=== PATIENT | male | born 1950 | race Caucasian/White ===

== ENCOUNTER 2017-05-17 16:38 | Inpatient (IN) ==
[2017-05-17] MEDS ORDERED: ASPIRIN 325 MG TABLET PO STA (17:03)
[2017-05-17] MEDS ORDERED: NITROGLYCERIN SL 0.4 MG TABLET SL STA (17:50)
[2017-05-17] MEDS ORDERED: MORPHINE 2 MG/1 ML SYRINGE IV STA (18:26)
[2017-05-17] MEDS ORDERED: ONDANSETRON 4 MG/2 ML VIAL IV STA (18:26)
[2017-05-17] MEDS ORDERED: ONDANSETRON 4 MG/2 ML VIAL ONE (18:42)
[2017-05-17] MEDS ORDERED: NITROGLYCERIN DRIP 50 MG/250 ML BOTTLE IV ONE (18:42)
[2017-05-17] MEDS ORDERED: MORPHINE 2 MG/1 ML SYRINGE ONE ×2 (18:42)
[2017-05-17] MEDS ORDERED: MAGNESIUM SULF RIDER 4 GM in PREMIX 1 EACH IV PRN (18:49)
[2017-05-17] MEDS ORDERED: MAGNESIUM SULF RIDER 2 GM in PREMIX 1 EACH IV PRN (18:49)
[2017-05-17] MEDS: NITROGLYCERIN DRIP 50 MG/250 ML BOTTLE IV SCH (18:59)
[2017-05-17] MEDS ORDERED: NITROGLYCERIN SL 0.4 MG TABLET SL PRN (19:52)
[2017-05-17] MEDS ORDERED: ENOXAPARIN 80 MG/0.8 ML SYRINGE SUBCUT ONE (20:01)
[2017-05-17] MEDS ORDERED: POTASSIUM CHLORIDE RIDER 10 MEQ in PREMIX 1 EACH IV PRN (20:02)
[2017-05-17] MEDS ORDERED: MORPHINE 2 MG/1 ML SYRINGE IV PRN (20:47)
[2017-05-17] MEDS: TICAGRELOR 90 MG TABLET PO SCH (21:31)
[2017-05-17] MEDS: CARVEDILOL 12.5 MG TABLET PO SCH (21:31)
[2017-05-18] MEDS: SODIUM CHLORIDE 0.45% 1,000 ML IV SCH ×2 (03:21→15:38)
[2017-05-18 04:01] LABS: Basophils # 0.1 10*3/uL (0.0-0.2); Basophils % 0.6 % (0.0-0.8); Eosinophils # 0.2 10*3/uL (0.0-0.87); Eosinophils % 2.3 % (0.00-10.9); Hematocrit 41.4 VOL% (42.0-52.0); Hemoglobin 13.7 GM/DL (14.0-18.0); Immature Granulocytes % 0.6 %; Immature Granulocytes Absolute 0.05 #; Lymphocytes # 2.2 10*3/uL (1.4-4.0); Lymphocytes % 28.3 % (21.2-54.2); Mean Corpuscular HGB Conc 33.1 GM/DL (32-36); Mean Corpuscular Hemoglobin 30 PG (27-34); Mean Corpuscular Volume 90.2 FL (87-102); Mean Platelet Volume 8.7 FL (9.6-12.0); Monocytes # 0.7 10*3/uL (0.11-0.8); Monocytes % 9.5 % (1.7-12.7); Neutrophils # 4.5 10*3/uL (1.4-7.4); Neutrophils % 58.7 % (38.7-73.9); Platelet Count 185 T/CUMM (130-400); Red Blood Count 4.59 MC/CUMM (3.8-5.5); Red Cell Distribution Width 12.5 % (9.3-17.3); White Blood Count 7.7 T/CUMM (4-12)
[2017-05-18 04:14] LABS: INR 1.1; PT Patient Result 11.9 SECS
[2017-05-18 04:40] LABS: Calcium 8.5 MG/DL (8.5-10.1); Osmolality,Calculated 283.1 MOS/KG (273-304); Potassium 4.1 MMOL/L (3.5-5.1)
[2017-05-18 04:46] LABS: Magnesium 2.5 MG/DL (1.8-2.4); Risk Ratio 5.89; VLDL CHOLESTEROL 40.8 MG/DL
[2017-05-18] MEDS ORDERED: diphenhydrAMINE CAP 25 MG CAPSULE PO ONE (06:00)
[2017-05-18] MEDS ORDERED: DIAZEPAM 5 MG TABLET PO ONE (06:00)
[2017-05-18] MEDS ORDERED: ASPIRIN 325 MG TABLET ONE (06:54)
[2017-05-18] MEDS: TICAGRELOR 90 MG TABLET PO SCH ×3 (06:58→21:26)
[2017-05-18] MEDS: CARVEDILOL 12.5 MG TABLET PO SCH ×3 (06:59→21:26)
[2017-05-18] MEDS: ASPIRIN CHEW 81 MG TABLET PO SCH ×2 (07:01→10:05)
[2017-05-18] MEDS ORDERED: HYDROmorphone 2 MG/1 ML VIAL ONE ×2 (09:20→10:19)
[2017-05-18] MEDS ORDERED: MIDAZOLAM 2 MG/2 ML VIAL ONE ×2 (09:20→10:20)
[2017-05-18] MEDS ORDERED: BIVALIRUDIN 250 MG VIAL IV ONE (10:21)
[2017-05-18] MEDS ORDERED: BIVALIRUDIN 250 MG in SODIUM CHLORIDE 0.9% 50 ML IV SCH (10:28)
[2017-05-18] MEDS ORDERED: TICAGRELOR 90 MG TABLET ONE (11:00)
[2017-05-18] MEDS ORDERED: HEPARIN/NACL 0.9% 2 UNITS/ML 1,000 ML IV ONE (11:01)
[2017-05-18] MEDS ORDERED: LIDOCAINE 1% 20 ML VIAL ONE (11:01)
[2017-05-18] MEDS ORDERED: ONDANSETRON 4 MG/2 ML VIAL IV PRN (11:04)
[2017-05-18] MEDS ORDERED: ZALEPLON 5 MG CAPSULE PO PRN (11:04)
[2017-05-18] MEDS ORDERED: ACETAMINOPHEN 325 MG TABLET PO PRN (12:03)
[2017-05-18] MEDS ORDERED: BISACODYL 5 MG TABLET PO PRN (12:05)
[2017-05-18] MEDS: VALSARTAN/HCTZ 80-12.5 MG TABLET PO SCH (12:48)
[2017-05-18] MEDS: FUROSEMIDE 20 MG TABLET PO SCH ×2 (12:49→15:30)
[2017-05-18] MEDS: NITROGLYCERIN DRIP 50 MG/250 ML BOTTLE IV SCH (21:25)
[2017-05-18] MEDS: diphenhydrAMINE CAP 25 MG CAPSULE PO PRN (21:26)
[2017-05-19] MEDS: ASPIRIN CHEW 81 MG TABLET PO SCH (09:00)
[2017-05-19] MEDS: CARVEDILOL 12.5 MG TABLET PO SCH ×2 (09:00→21:40)
[2017-05-19] MEDS: FUROSEMIDE 20 MG TABLET PO SCH (09:00)
[2017-05-19] MEDS: VALSARTAN/HCTZ 80-12.5 MG TABLET PO SCH (09:00)
[2017-05-19] MEDS: TICAGRELOR 90 MG TABLET PO SCH ×2 (09:00→21:40)
[2017-05-19] MEDS ORDERED: ROSUVASTATIN 10 MG TABLET PO SCH (10:00)
[2017-05-19] MEDS: SODIUM CHLORIDE 0.9% 1,000 ML IV SCH ×2 (10:01→20:20)
[2017-05-19 11:11] LABS: Calcium 8.5 MG/DL (8.5-10.1); Osmolality,Calculated 283.1 MOS/KG (273-304); Potassium 3.8 MMOL/L (3.5-5.1)
[2017-05-19 11:25] LABS: Basophils % 0.4 % (0.0-0.8); Eosinophils # 0.2 10*3/uL (0.0-0.87); Eosinophils % 2.2 % (0.00-10.9); Hematocrit 42.2 VOL% (42.0-52.0); Hemoglobin 14.1 GM/DL (14.0-18.0); Immature Granulocytes % 0.5 %; Immature Granulocytes Absolute 0.04 #; Lymphocytes # 1.4 10*3/uL (1.4-4.0); Lymphocytes % 18.2 % (21.2-54.2); Mean Corpuscular HGB Conc 33.4 GM/DL (32-36); Mean Corpuscular Hemoglobin 30 PG (27-34); Mean Corpuscular Volume 90.6 FL (87-102); Monocytes # 0.8 10*3/uL (0.11-0.8); Monocytes % 9.9 % (1.7-12.7); Neutrophils # 5.4 10*3/uL (1.4-7.4); Neutrophils % 68.8 % (38.7-73.9); Platelet Count 180 T/CUMM (130-400); Red Blood Count 4.66 MC/CUMM (3.8-5.5); Red Cell Distribution Width 12.5 % (9.3-17.3); White Blood Count 7.9 T/CUMM (4-12)
[2017-05-19] MEDS ORDERED: LOPERAMIDE 2 MG CAPSULE PO PRN ×2 (11:47→14:24)
[2017-05-19] MEDS: SODIUM CHLORIDE 0.45% 1,000 ML IV SCH ×2 (11:53→19:35)
[2017-05-19] MEDS ORDERED: MAGNESIUM SULF RIDER 2 GM in PREMIX 1 EACH IV PRN (14:04)
[2017-05-19] MEDS ORDERED: PROMETHAZINE INJ 25 MG in SODIUM CHLORIDE 0.9% 50 ML IV PRN (20:23)
[2017-05-19] MEDS: NITROGLYCERIN DRIP 50 MG/250 ML BOTTLE IV SCH (21:38)
[2017-05-19] MEDS: diphenhydrAMINE CAP 25 MG CAPSULE PO PRN (21:40)
[2017-05-19] MEDS ORDERED: LORazepam 2 MG/1 ML VIAL IV PRN (23:47)
[2017-05-20 03:51] LABS: Basophils % 0.4 % (0.0-0.8); Eosinophils # 0.2 10*3/uL (0.0-0.87); Eosinophils % 1.4 % (0.00-10.9); Hematocrit 41.3 VOL% (42.0-52.0); Hemoglobin 14.3 GM/DL (14.0-18.0); Immature Granulocytes % 0.6 %; Immature Granulocytes Absolute 0.07 #; Lymphocytes # 1.8 10*3/uL (1.4-4.0); Lymphocytes % 16.1 % (21.2-54.2); Mean Corpuscular HGB Conc 34.6 GM/DL (32-36); Mean Corpuscular Hemoglobin 31 PG (27-34); Mean Corpuscular Volume 88.1 FL (87-102); Mean Platelet Volume 8.8 FL (9.6-12.0); Monocytes % 9.3 % (1.7-12.7); Neutrophils # 7.9 10*3/uL (1.4-7.4); Neutrophils % 72.2 % (38.7-73.9); Platelet Count 177 T/CUMM (130-400); Red Blood Count 4.69 MC/CUMM (3.8-5.5); Red Cell Distribution Width 12.3 % (9.3-17.3)
[2017-05-20 04:19] LABS: Calcium 8.4 MG/DL (8.5-10.1); Osmolality,Calculated 280.3 MOS/KG (273-304); Potassium 3.1 MMOL/L (3.5-5.1)
[2017-05-20] MEDS: POTASSIUM CHLORIDE RIDER 10 MEQ in PREMIX 1 EACH IV PRN ×2 (05:23→06:29)
[2017-05-20] MEDS ORDERED: diphenhydrAMINE CAP 25 MG CAPSULE PO ONE (06:00)
[2017-05-20] MEDS ORDERED: DIAZEPAM 5 MG TABLET PO ONE (06:00)
[2017-05-20] MEDS: SODIUM CHLORIDE 0.9% 1,000 ML IV SCH ×2 (06:29→20:03)
[2017-05-20] MEDS ORDERED: HEPARIN/NACL 0.9% 2 UNITS/ML 1,000 ML IV ONE (07:17)
[2017-05-20] MEDS ORDERED: HYDROmorphone 2 MG/1 ML VIAL ONE (07:17)
[2017-05-20] MEDS ORDERED: LIDOCAINE 1% 20 ML VIAL ONE (07:17)
[2017-05-20] MEDS ORDERED: MIDAZOLAM 2 MG/2 ML VIAL ONE (07:18)
[2017-05-20] MEDS ORDERED: BIVALIRUDIN 250 MG VIAL IV ONE (07:37)
[2017-05-20] MEDS: BIVALIRUDIN 250 MG in SODIUM CHLORIDE 0.9% 50 ML IV SCH ×2 (08:55→13:37)
[2017-05-20] MEDS ORDERED: SODIUM CHLORIDE 0.9% 1,000 ML IV SCH (11:30)
[2017-05-20] MEDS: CARVEDILOL 12.5 MG TABLET PO SCH ×2 (11:32→21:31)
[2017-05-20] MEDS: VALSARTAN/HCTZ 80-12.5 MG TABLET PO SCH (11:32)
[2017-05-20] MEDS: TICAGRELOR 90 MG TABLET PO SCH ×2 (11:32→21:31)
[2017-05-20] MEDS: FUROSEMIDE 20 MG TABLET PO SCH (11:32)
[2017-05-20] MEDS: ASPIRIN CHEW 81 MG TABLET PO SCH (11:32)
[2017-05-20] MEDS: NITROGLYCERIN DRIP 50 MG/250 ML BOTTLE IV SCH (20:03)
[2017-05-20] MEDS: diphenhydrAMINE CAP 25 MG CAPSULE PO PRN (21:31)
[2017-05-21] MEDS: SODIUM CHLORIDE 0.9% 1,000 ML IV SCH (02:19)
[2017-05-21 05:44] LABS: Basophils % 0.5 % (0.0-0.8); Eosinophils # 0.3 10*3/uL (0.0-0.87); Eosinophils % 3.1 % (0.00-10.9); Hematocrit 39.9 VOL% (42.0-52.0); Hemoglobin 13.6 GM/DL (14.0-18.0); Immature Granulocytes % 0.6 %; Immature Granulocytes Absolute 0.05 #; Lymphocytes # 1.8 10*3/uL (1.4-4.0); Lymphocytes % 20.4 % (21.2-54.2); Mean Corpuscular HGB Conc 34.1 GM/DL (32-36); Mean Corpuscular Hemoglobin 30 PG (27-34); Mean Corpuscular Volume 88.5 FL (87-102); Mean Platelet Volume 8.9 FL (9.6-12.0); Monocytes # 0.9 10*3/uL (0.11-0.8); Monocytes % 10.6 % (1.7-12.7); Neutrophils # 5.7 10*3/uL (1.4-7.4); Neutrophils % 64.8 % (38.7-73.9); Platelet Count 162 T/CUMM (130-400); Red Blood Count 4.51 MC/CUMM (3.8-5.5); Red Cell Distribution Width 12.2 % (9.3-17.3); White Blood Count 8.7 T/CUMM (4-12)
[2017-05-21 06:25] LABS: Blood Urea Nitrogen 18 MG/DL (7-18); Calcium 8.4 MG/DL (8.5-10.1); Glucose 87 MG/DL (74-106); Osmolality,Calculated 279.4 MOS/KG (273-304); Potassium 3.7 MMOL/L (3.5-5.1); Sodium 140 MMOL/L (136-145)
[2017-05-21] MEDS: VALSARTAN/HCTZ 80-12.5 MG TABLET PO SCH (09:39)
[2017-05-21] MEDS: CARVEDILOL 12.5 MG TABLET PO SCH (09:39)
[2017-05-21] MEDS: ASPIRIN CHEW 81 MG TABLET PO SCH (09:39)
[2017-05-21] MEDS: TICAGRELOR 90 MG TABLET PO SCH (09:39)
[2017-05-21] MEDS: FUROSEMIDE 20 MG TABLET PO SCH (09:39)
[2017-05-21 10:37] VITALS: BP 107/71
== END 2017-05-21 10:45 | disposition home or self-care (01) | DRG 247 ==
LOC: EDUNIT# → EDBD → N.ED 16:38 → N.EDINP 18:49 → N.CC 19:13
PROVIDERS: ADMIT Internal Medicine Cardiovascular Disease; ATTEND Internal Medicine Cardiovascular Disease

== ENCOUNTER 2017-08-16 10:35 | Inpatient (IN) ==
[2017-08-16] MEDS ORDERED: MORPHINE 2 MG/1 ML SYRINGE IV PRN (15:22)
[2017-08-16] MEDS ORDERED: ACETAMINOPHEN 325 MG TABLET PO PRN (15:22)
[2017-08-16 16:20] LABS: Basophils % 0.1 % (0.0-0.8); Hematocrit 40.2 VOL% (42.0-52.0); Hemoglobin 13.1 GM/DL (14.0-18.0); Immature Granulocytes % 0.9 %; Immature Granulocytes Absolute 0.16 #; Lymphocytes # 0.5 10*3/uL (1.4-4.0); Lymphocytes % 2.6 % (21.2-54.2); Mean Corpuscular HGB Conc 32.6 GM/DL (32-36); Mean Corpuscular Hemoglobin 30 PG (27-34); Mean Corpuscular Volume 91.6 FL (87-102); Monocytes # 0.2 10*3/uL (0.11-0.8); Neutrophils # 16.7 10*3/uL (1.4-7.4); Neutrophils % 95.4 % (38.7-73.9); Platelet Count 176 T/CUMM (130-400); Red Blood Count 4.39 MC/CUMM (3.8-5.5); Red Cell Distribution Width 12.8 % (9.3-17.3); White Blood Count 17.5 T/CUMM (4-12)
[2017-08-16] MEDS ORDERED: GLUCAGON 1 MG VIAL IM PRN (16:45)
[2017-08-16] MEDS ORDERED: DEXTROSE 50% 25 GM/50 ML VIAL IV PRN (16:45)
[2017-08-16 16:46] LABS: Band Neutrophils 2 % (0-10); Lymphocytes 3 % (20-55); Platelet Estimate Normal; Segmented Neutrophils 93 % (50-85); Total Cells Counted 100
[2017-08-16 16:58] LABS: CKMB % 4.7 %
[2017-08-16 17:02] LABS: Albumin 4.3 G/DL (3.4-5.0); Bilirubin,Total 0.6 MG/DL (0.2-1.0); Calcium 8.7 MG/DL (8.5-10.1); Magnesium 2.6 MG/DL (1.8-2.4); Potassium 3.7 MMOL/L (3.5-5.1); Thyroid Stimulating Hormone 0.323 uIU/ml (0.358-3.74); Total Protein 7.2 G/DL (6.4-8.3)
[2017-08-16 17:08] LABS: Troponin I Only 3.31 NG/ML (0.00-0.045)
[2017-08-16] MEDS: PANTOPRAZOLE 40 MG TABLET PO SCH (17:30)
[2017-08-16] MEDS: AZITHROMYCIN INJ 500 MG in SODIUM CHLORIDE 0.9% 250 ML IV SCH (18:50)
[2017-08-16 19:13] LABS: CKMB % 5.8 %
[2017-08-16 19:15] LABS: Troponin I Only 4.27 NG/ML (0.00-0.045)
[2017-08-16] MEDS ORDERED: NITROGLYCERIN SL 0.4 MG TABLET SL PRN (20:25)
[2017-08-16] MEDS: cefTRIAXone 2,000 MG in SYRINGE 1 EACH IV SCH (21:17)
[2017-08-16] MEDS: ONDANSETRON 4 MG/2 ML VIAL IV PRN (21:18)
[2017-08-16] MEDS: INSULIN LISPRO 100 UNIT/ML SUBCUT SCH ×2 (21:18→21:30)
[2017-08-16] MEDS: guaiFENesin/DM ER 600-30 MG TABLET PO SCH (21:18)
[2017-08-16] MEDS: ENOXAPARIN 40 MG/0.4 ML SYRINGE SUBCUT SCH (21:18)
[2017-08-16] MEDS: CARVEDILOL 25 MG TABLET PO SCH (21:19)
[2017-08-16] MEDS: TICAGRELOR 90 MG TABLET PO SCH (21:19)
[2017-08-16] MEDS: ALBUTEROL/IPRATROPIUM 3 ML NEB RESP TX SCH (21:29)
[2017-08-16 22:08] LABS: CKMB % 5.5 %
[2017-08-16 22:10] LABS: Troponin I Only 4.93 NG/ML (0.00-0.045)
[2017-08-17 00:36] LABS: CKMB % 4.4 %
[2017-08-17 00:41] LABS: Troponin I Only 4.93 NG/ML (0.00-0.045)
[2017-08-17] MEDS: ALBUTEROL/IPRATROPIUM 3 ML NEB RESP TX SCH ×4 (01:24→20:00)
[2017-08-17 05:06] LABS: Basophils % 0.1 % (0.0-0.8); Hematocrit 36.4 VOL% (42.0-52.0); Hemoglobin 11.8 GM/DL (14.0-18.0); Immature Granulocytes % 0.8 %; Immature Granulocytes Absolute 0.12 #; Lymphocytes # 0.8 10*3/uL (1.4-4.0); Lymphocytes % 5.4 % (21.2-54.2); Mean Corpuscular HGB Conc 32.4 GM/DL (32-36); Mean Corpuscular Hemoglobin 30 PG (27-34); Mean Corpuscular Volume 91.7 FL (87-102); Mean Platelet Volume 9.2 FL (9.6-12.0); Monocytes % 6.5 % (1.7-12.7); Neutrophils # 13.3 10*3/uL (1.4-7.4); Neutrophils % 87.2 % (38.7-73.9); Platelet Count 175 T/CUMM (130-400); Red Blood Count 3.97 MC/CUMM (3.8-5.5); Red Cell Distribution Width 13.2 % (9.3-17.3); White Blood Count 15.3 T/CUMM (4-12)
[2017-08-17 05:37] LABS: Calcium 8.4 MG/DL (8.5-10.1); Potassium 3.9 MMOL/L (3.5-5.1)
[2017-08-17 05:44] LABS: CKMB % 4.6 %
[2017-08-17 06:02] LABS: Troponin I Only 5.23 NG/ML (0.00-0.045)
[2017-08-17] MEDS: INSULIN LISPRO 100 UNIT/ML SUBCUT SCH ×4 (08:00→22:31)
[2017-08-17] MEDS: TICAGRELOR 90 MG TABLET PO SCH ×2 (14:36→22:30)
[2017-08-17] MEDS: PANTOPRAZOLE 40 MG TABLET PO SCH (14:36)
[2017-08-17] MEDS: guaiFENesin/DM ER 600-30 MG TABLET PO SCH ×2 (14:36→22:31)
[2017-08-17] MEDS: CARVEDILOL 25 MG TABLET PO SCH ×2 (14:37→22:30)
[2017-08-17] MEDS: ASPIRIN CHEW 81 MG TABLET PO SCH (14:37)
[2017-08-17] MEDS: VALSARTAN/HCTZ 80-12.5 MG TABLET PO SCH (14:37)
[2017-08-17] MEDS: ISOSORBIDE MONONITRATE 60 MG TABLET PO SCH (14:37)
[2017-08-17] MEDS: FUROSEMIDE 20 MG TABLET PO SCH (14:37)
[2017-08-17] MEDS: cefTRIAXone 2,000 MG in SYRINGE 1 EACH IV SCH (18:03)
[2017-08-17] MEDS: AZITHROMYCIN INJ 500 MG in SODIUM CHLORIDE 0.9% 250 ML IV SCH (18:16)
[2017-08-17] MEDS: ONDANSETRON 4 MG/2 ML VIAL IV PRN (18:29)
[2017-08-17] MEDS ORDERED: ROSUVASTATIN 10 MG TABLET PO SCH (21:00)
[2017-08-17] MEDS: traZODone 50 MG TABLET PO PRN (22:30)
[2017-08-17] MEDS: ENOXAPARIN 40 MG/0.4 ML SYRINGE SUBCUT SCH (22:31)
[2017-08-18] MEDS: ALBUTEROL/IPRATROPIUM 3 ML NEB RESP TX SCH ×4 (01:21→20:15)
[2017-08-18 05:24] LABS: Basophils % 0.3 % (0.0-0.8); Eosinophils # 0.1 10*3/uL (0.0-0.87); Eosinophils % 0.7 % (0.00-10.9); Hematocrit 36.2 VOL% (42.0-52.0); Hemoglobin 11.7 GM/DL (14.0-18.0); Immature Granulocytes % 0.4 %; Immature Granulocytes Absolute 0.04 #; Lymphocytes # 2.3 10*3/uL (1.4-4.0); Lymphocytes % 24.8 % (21.2-54.2); Mean Corpuscular HGB Conc 32.3 GM/DL (32-36); Mean Corpuscular Hemoglobin 30 PG (27-34); Mean Corpuscular Volume 91.4 FL (87-102); Mean Platelet Volume 9.4 FL (9.6-12.0); Monocytes # 0.8 10*3/uL (0.11-0.8); Monocytes % 9.1 % (1.7-12.7); Neutrophils # 5.9 10*3/uL (1.4-7.4); Neutrophils % 64.7 % (38.7-73.9); Platelet Count 173 T/CUMM (130-400); Red Blood Count 3.96 MC/CUMM (3.8-5.5); Red Cell Distribution Width 13.2 % (9.3-17.3); White Blood Count 9.1 T/CUMM (4-12)
[2017-08-18 05:56] LABS: Calcium 8.3 MG/DL (8.5-10.1); Osmolality,Calculated 291.8 MOS/KG (273-304); Potassium 4.2 MMOL/L (3.5-5.1)
[2017-08-18 06:00] LABS: Risk Ratio 4.21; VLDL CHOLESTEROL 26.2 MG/DL
[2017-08-18] MEDS: INSULIN LISPRO 100 UNIT/ML SUBCUT SCH ×4 (07:55→21:48)
[2017-08-18] MEDS: VALSARTAN/HCTZ 80-12.5 MG TABLET PO SCH (09:42)
[2017-08-18] MEDS: guaiFENesin/DM ER 600-30 MG TABLET PO SCH ×2 (09:42→21:18)
[2017-08-18] MEDS: ISOSORBIDE MONONITRATE 60 MG TABLET PO SCH (09:42)
[2017-08-18] MEDS: TICAGRELOR 90 MG TABLET PO SCH ×2 (09:43→21:18)
[2017-08-18] MEDS: ASPIRIN CHEW 81 MG TABLET PO SCH (09:43)
[2017-08-18] MEDS: CARVEDILOL 25 MG TABLET PO SCH ×2 (09:43→21:18)
[2017-08-18] MEDS: FUROSEMIDE 20 MG TABLET PO SCH (09:43)
[2017-08-18] MEDS: PANTOPRAZOLE 40 MG TABLET PO SCH (09:43)
[2017-08-18] MEDS: cefTRIAXone 2,000 MG in SYRINGE 1 EACH IV SCH (18:14)
[2017-08-18] MEDS: AZITHROMYCIN INJ 500 MG in SODIUM CHLORIDE 0.9% 250 ML IV SCH (18:15)
[2017-08-18] MEDS: ONDANSETRON 4 MG/2 ML VIAL IV PRN (18:43)
[2017-08-18] MEDS: ENOXAPARIN 40 MG/0.4 ML SYRINGE SUBCUT SCH (21:18)
[2017-08-18] MEDS: traZODone 50 MG TABLET PO PRN (21:21)
[2017-08-19] MEDS: ALBUTEROL/IPRATROPIUM 3 ML NEB RESP TX SCH ×2 (00:23→07:06)
[2017-08-19 05:52] LABS: Basophils % 0.5 % (0.0-0.8); Eosinophils # 0.2 10*3/uL (0.0-0.87); Immature Granulocytes % 0.7 %; Immature Granulocytes Absolute 0.05 #; Lymphocytes # 2.1 10*3/uL (1.4-4.0); Lymphocytes % 27.2 % (21.2-54.2); Mean Corpuscular HGB Conc 33.3 GM/DL (32-36); Mean Corpuscular Hemoglobin 30 PG (27-34); Mean Corpuscular Volume 88.4 FL (87-102); Mean Platelet Volume 9.2 FL (9.6-12.0); Monocytes # 0.8 10*3/uL (0.11-0.8); Monocytes % 9.8 % (1.7-12.7); Neutrophils # 4.5 10*3/uL (1.4-7.4); Neutrophils % 58.8 % (38.7-73.9); Platelet Count 190 T/CUMM (130-400); Red Blood Count 4.41 MC/CUMM (3.8-5.5); White Blood Count 7.7 T/CUMM (4-12)
[2017-08-19 06:54] LABS: Calcium 8.7 MG/DL (8.5-10.1); Potassium 3.9 MMOL/L (3.5-5.1)
[2017-08-19 07:51] VITALS: BP 115/72
[2017-08-19] MEDS: INSULIN LISPRO 100 UNIT/ML SUBCUT SCH (09:15)
[2017-08-19] MEDS: ISOSORBIDE MONONITRATE 60 MG TABLET PO SCH (09:17)
[2017-08-19] MEDS: guaiFENesin/DM ER 600-30 MG TABLET PO SCH (09:17)
[2017-08-19] MEDS: VALSARTAN/HCTZ 80-12.5 MG TABLET PO SCH (09:17)
[2017-08-19] MEDS: CARVEDILOL 25 MG TABLET PO SCH (09:17)
[2017-08-19] MEDS: ASPIRIN CHEW 81 MG TABLET PO SCH (09:17)
[2017-08-19] MEDS: FUROSEMIDE 20 MG TABLET PO SCH (09:17)
[2017-08-19] MEDS: TICAGRELOR 90 MG TABLET PO SCH (09:17)
[2017-08-19] MEDS: PANTOPRAZOLE 40 MG TABLET PO SCH (09:17)
== END 2017-08-19 12:33 | disposition home or self-care (01) | DRG 280 ==
LOC: SUATTDRO 14:30 → N.TELES 14:30
PROVIDERS: ADMIT Internal Medicine; ATTEND Internal Medicine Cardiovascular Disease

== ENCOUNTER 2017-12-14 02:19 | Inpatient (IN) ==
[2017-12-14] MEDS ORDERED: NITROGLYCERIN DRIP 50 MG/250 ML BOTTLE IV PRN (02:39)
[2017-12-14] MEDS: ALPRAZolam 0.5 MG TABLET PO PRN ×3 (03:25→22:03)
[2017-12-14] MEDS ORDERED: LORazepam 2 MG/1 ML VIAL IV ONE (03:30)
[2017-12-14 04:46] LABS: Basophils # 0.1 10*3/uL (0.0-0.2); Basophils % 0.6 % (0.0-0.8); Eosinophils # 0.1 10*3/uL (0.0-0.87); Eosinophils % 0.5 % (0.00-10.9); Hematocrit 38.7 VOL% (42.0-52.0); Hemoglobin 12.3 GM/DL (14.0-18.0); Immature Granulocytes % 0.5 %; Immature Granulocytes Absolute 0.05 #; Lymphocytes # 1.1 10*3/uL (1.4-4.0); Lymphocytes % 11.2 % (21.2-54.2); Mean Corpuscular HGB Conc 31.8 GM/DL (32-36); Mean Corpuscular Hemoglobin 29 PG (27-34); Mean Corpuscular Volume 89.8 FL (87-102); Mean Platelet Volume 9.3 FL (9.6-12.0); Monocytes # 0.7 10*3/uL (0.11-0.8); Monocytes % 7.2 % (1.7-12.7); Neutrophils # 7.9 10*3/uL (1.4-7.4); Platelet Count 190 T/CUMM (130-400); Red Blood Count 4.31 MC/CUMM (3.8-5.5); Red Cell Distribution Width 13.1 % (9.3-17.3); White Blood Count 9.9 T/CUMM (4-12)
[2017-12-14 05:27] LABS: CKMB % 7.7 %
[2017-12-14 05:37] LABS: Troponin I Only 2.4 NG/ML (0.00-0.045)
[2017-12-14 05:46] LABS: Albumin 3.8 G/DL (3.4-5.0); Bilirubin,Total 0.7 MG/DL (0.2-1.0); Calcium 8.1 MG/DL (8.5-10.1); Osmolality,Calculated 287.1 MOS/KG (273-304); Potassium 3.9 MMOL/L (3.5-5.1); Thyroid Stimulating Hormone 2.58 uIU/ml (0.358-3.74); Total Protein 6.9 G/DL (6.4-8.3)
[2017-12-14] MEDS: NITROGLYCERIN 2% OINT 1 INCH/GM PACK TOP SCH ×2 (06:26→12:59)
[2017-12-14] MEDS ORDERED: diphenhydrAMINE CAP 50 MG CAPSULE PO ONE (07:22)
[2017-12-14] MEDS ORDERED: DIAZEPAM 5 MG TABLET PO ONE ×2 (07:23→07:37)
[2017-12-14] MEDS ORDERED: HYOSCYAMINE 0.125 MG TABLET PO PRN (07:26)
[2017-12-14] MEDS ORDERED: NITROGLYCERIN SL 0.4 MG TABLET SL PRN (07:26)
[2017-12-14] MEDS ORDERED: ENOXAPARIN 100 MG/ML SYRINGE SUBCUT ONE (07:31)
[2017-12-14] MEDS ORDERED: POTASSIUM CHLORIDE 20 MEQ TABLET PO PRN (07:32)
[2017-12-14] MEDS ORDERED: MAGNESIUM SULF RIDER 2 GM in PREMIX 1 EACH IV PRN ×2 (07:32→07:37)
[2017-12-14] MEDS ORDERED: POTASSIUM CHLORIDE RIDER 10 MEQ in PREMIX 1 EACH IV PRN (07:37)
[2017-12-14] MEDS ORDERED: diphenhydrAMINE CAP 25 MG CAPSULE PO ONE (07:37)
[2017-12-14] MEDS ORDERED: ENOXAPARIN 80 MG/0.8 ML SYRINGE SUBCUT SCH (08:00)
[2017-12-14] MEDS ORDERED: SODIUM CHLORIDE 0.45% 1,000 ML IV SCH (08:00)
[2017-12-14] MEDS ORDERED: LIDOCAINE 1%/EPI INJ 20 ML VIAL ONE (08:03)
[2017-12-14] MEDS ORDERED: HEPARIN/NACL 0.9% 2 UNITS/ML 1,000 ML IV ONE (08:03)
[2017-12-14] MEDS ORDERED: MIDAZOLAM 2 MG/2 ML VIAL ONE (08:37)
[2017-12-14] MEDS ORDERED: fentaNYL 100 MCG/2 ML VIAL ONE (08:40)
[2017-12-14] MEDS ORDERED: NITROGLYCERIN DRIP 50 MG/250 ML BOTTLE IV ONE (08:44)
[2017-12-14 08:48] LABS: INR 1.1; PT Patient Result 11.6 SECS
[2017-12-14] MEDS ORDERED: ASPIRIN 325 MG TABLET ONE (08:48)
[2017-12-14] MEDS ORDERED: METOPROLOL TARTRATE 5 MG/5 ML VIAL IV ONE (08:49)
[2017-12-14] MEDS ORDERED: FUROSEMIDE 20 MG TABLET PO SCH (09:00)
[2017-12-14] MEDS ORDERED: ISOSORBIDE MONONITRATE 60 MG TABLET PO SCH (09:00)
[2017-12-14] MEDS ORDERED: ENOXAPARIN 30 MG/0.3 ML SYRINGE ONE (09:01)
[2017-12-14 09:15] LABS: CKMB % 8.5 %
[2017-12-14 09:22] LABS: Troponin I Only 6.26 NG/ML (0.00-0.045)
[2017-12-14] MEDS ORDERED: HEPARIN/NACL 0.9% 2 UNITS/ML 500 ML IV ONE (09:27)
[2017-12-14] MEDS: ASPIRIN CHEW 81 MG TABLET PO SCH (10:25)
[2017-12-14] MEDS ORDERED: HYDROmorphone 2 MG/1 ML VIAL IV PRN (10:31)
[2017-12-14] MEDS: FUROSEMIDE 40 MG/4 ML VIAL IV SCH (10:38)
[2017-12-14] MEDS: TICAGRELOR 90 MG TABLET PO SCH ×2 (11:07→20:56)
[2017-12-14] MEDS: ROSUVASTATIN 10 MG TABLET PO SCH (11:07)
[2017-12-14] MEDS: PANTOPRAZOLE 40 MG TABLET PO SCH (11:08)
[2017-12-14] MEDS: CARVEDILOL 25 MG TABLET PO SCH ×2 (11:08→20:56)
[2017-12-14] MEDS ORDERED: diphenhydrAMINE CAP 25 MG CAPSULE PO PRN (15:49)
[2017-12-14] MEDS ORDERED: MAGNESIUM HYDROXIDE SUSP 30 ML UDCUP PO PRN (15:50)
[2017-12-14] MEDS: oxyCODONE/ACETAMINOPHEN 5-325 MG TABLET PO PRN ×2 (16:59→22:32)
[2017-12-15] MEDS: oxyCODONE/ACETAMINOPHEN 5-325 MG TABLET PO PRN ×3 (04:35→17:12)
[2017-12-15 05:19] LABS: Basophils # 0.1 10*3/uL (0.0-0.2); Basophils % 0.7 % (0.0-0.8); Eosinophils # 0.3 10*3/uL (0.0-0.87); Eosinophils % 3.7 % (0.00-10.9); Hematocrit 40.6 VOL% (42.0-52.0); Immature Granulocytes Absolute 0.08 #; Lymphocytes # 1.5 10*3/uL (1.4-4.0); Lymphocytes % 18.4 % (21.2-54.2); Mean Corpuscular Hemoglobin 29 PG (27-34); Mean Corpuscular Volume 89.2 FL (87-102); Mean Platelet Volume 9.3 FL (9.6-12.0); Monocytes # 0.7 10*3/uL (0.11-0.8); Monocytes % 7.9 % (1.7-12.7); NRBC # 0.03 10*3/uL; Neutrophils # 5.7 10*3/uL (1.4-7.4); Neutrophils % 68.3 % (38.7-73.9); Platelet Count 175 T/CUMM (130-400); Red Blood Count 4.55 MC/CUMM (3.8-5.5); Red Cell Distribution Width 13.2 % (9.3-17.3); White Blood Count 8.3 T/CUMM (4-12)
[2017-12-15 05:34] LABS: Calcium 8.2 MG/DL (8.5-10.1); Osmolality,Calculated 276.7 MOS/KG (273-304); Potassium 4.3 MMOL/L (3.5-5.1)
[2017-12-15] MEDS: ALPRAZolam 0.5 MG TABLET PO PRN ×2 (08:24→22:58)
[2017-12-15] MEDS: ROSUVASTATIN 10 MG TABLET PO SCH (08:24)
[2017-12-15] MEDS: TICAGRELOR 90 MG TABLET PO SCH ×2 (08:24→20:01)
[2017-12-15] MEDS: PANTOPRAZOLE 40 MG TABLET PO SCH (08:24)
[2017-12-15] MEDS: ASPIRIN CHEW 81 MG TABLET PO SCH (08:24)
[2017-12-15] MEDS: CARVEDILOL 25 MG TABLET PO SCH ×2 (08:24→20:01)
[2017-12-15] MEDS: FUROSEMIDE 40 MG/4 ML VIAL IV SCH (08:25)
[2017-12-15] MEDS ORDERED: FUROSEMIDE 40 MG/4 ML VIAL IV ONE (10:00)
[2017-12-15] MEDS: SPIRONOLACTONE 25 MG TABLET PO SCH (10:16)
[2017-12-15] MEDS: ONDANSETRON 4 MG/2 ML VIAL IV PRN ×2 (14:09→22:48)
[2017-12-16] MEDS: oxyCODONE/ACETAMINOPHEN 5-325 MG TABLET PO PRN ×2 (04:35→10:52)
[2017-12-16 05:48] LABS: Basophils # 0.1 10*3/uL (0.0-0.2); Basophils % 0.7 % (0.0-0.8); Eosinophils # 0.3 10*3/uL (0.0-0.87); Eosinophils % 4.7 % (0.00-10.9); Hematocrit 36.7 VOL% (42.0-52.0); Hemoglobin 11.9 GM/DL (14.0-18.0); Immature Granulocytes % 0.3 %; Immature Granulocytes Absolute 0.02 #; Lymphocytes # 1.6 10*3/uL (1.4-4.0); Lymphocytes % 22.6 % (21.2-54.2); Mean Corpuscular HGB Conc 32.4 GM/DL (32-36); Mean Corpuscular Hemoglobin 29 PG (27-34); Mean Corpuscular Volume 89.5 FL (87-102); Mean Platelet Volume 9.4 FL (9.6-12.0); Monocytes # 0.9 10*3/uL (0.11-0.8); Monocytes % 12.6 % (1.7-12.7); Neutrophils # 4.2 10*3/uL (1.4-7.4); Neutrophils % 59.1 % (38.7-73.9); Platelet Count 186 T/CUMM (130-400); Red Cell Distribution Width 13.1 % (9.3-17.3)
[2017-12-16 06:20] LABS: Calcium 8.6 MG/DL (8.5-10.1); Osmolality,Calculated 282.3 MOS/KG (273-304); Potassium 3.8 MMOL/L (3.5-5.1)
[2017-12-16 08:14] VITALS: BP 123/84
[2017-12-16] MEDS: CARVEDILOL 25 MG TABLET PO SCH (09:18)
[2017-12-16] MEDS: ASPIRIN CHEW 81 MG TABLET PO SCH (09:18)
[2017-12-16] MEDS: TICAGRELOR 90 MG TABLET PO SCH (09:18)
[2017-12-16] MEDS: PANTOPRAZOLE 40 MG TABLET PO SCH (09:18)
[2017-12-16] MEDS: SPIRONOLACTONE 25 MG TABLET PO SCH (09:18)
[2017-12-16] MEDS: ONDANSETRON 4 MG/2 ML VIAL IV PRN (10:00)
== END 2017-12-16 10:56 | disposition home or self-care (01) | DRG 251 ==
LOC: N.CL 02:19 → N.CC 02:19 → EDSTATUS 12-15 10:22 → N.TELES 12-15 22:01
PROVIDERS: ADMIT Internal Medicine Cardiovascular Disease; ATTEND Internal Medicine Cardiovascular Disease

== ENCOUNTER 2020-08-14 10:03 | Observation (INO) ==
[2020-08-09 16:07] LABS: Calcium 8.6 MG/DL (8.5-10.1); Osmolality,Calculated 282.3 MOS/KG (273-304); Potassium 4.3 MMOL/L (3.5-5.1)
[2020-08-09 16:10] LABS: Basophils % 0.4 % (0.0-0.8); Eosinophils # 0.1 10*3/uL (0.0-0.87); Eosinophils % 1.6 % (0.00-10.9); Hematocrit 39.2 VOL% (42.0-52.0); Immature Granulocytes % 0.3 %; Immature Granulocytes Absolute 0.02 #; Lymphocytes # 1.3 10*3/uL (1.4-4.0); Lymphocytes % 19.4 % (21.2-54.2); Mean Corpuscular HGB Conc 28.1 GM/DL (32-36); Mean Corpuscular Volume 89.5 FL (87-102); Mean Platelet Volume 10.2 FL (9.6-12.0); Monocytes % 11.7 % (1.7-12.7); Neutrophils % 66.6 % (38.7-73.9); Platelet Count 178 T/CUMM (130-400); Red Blood Count 4.38 MC/CUMM (3.8-5.5); Red Cell Distribution Width 18.5 % (9.3-17.3); White Blood Count 6.8 T/CUMM (4-12)
[2020-08-09 16:15] LABS: Anisocytosis 1+
[2020-08-09 16:16] LABS: Hypochromasia 1+; Macrocytosis Slight; Microcytosis Slight; Ovalocytes Few; Target Cells Few
[2020-08-09 16:17] LABS: Platelet Estimate Adequate
[~2020-08-14 10:03] MED LIST: INDOCYANINE GREEN 25 MG VIAL IV ONE
[2020-08-14] MEDS ORDERED: INDOCYANINE GREEN 25 MG VIAL IV ONE (10:32)
[2020-08-14] MEDS ORDERED: ceFAZolin 2,000 MG in PREMIX 1 EACH IV ONE (10:32)
[2020-08-14] MEDS ORDERED: FAMOTIDINE 20 MG TABLET ONE (10:34)
[2020-08-14] MEDS ORDERED: FAMOTIDINE 20 MG TABLET PO STA (10:41)
[2020-08-14] MEDS ORDERED: fentaNYL 100 MCG/2 ML VIAL ONE (10:46)
[2020-08-14] MEDS ORDERED: LACTATED RINGERS 1,000 ML IV SCH (11:00)
[2020-08-14] MEDS ORDERED: ETOMIDATE 40 MG/20 ML VIAL IV ONE (11:33)
[2020-08-14] MEDS ORDERED: LIDOCAINE 2% 5 ML VIAL ONE (11:33)
[2020-08-14] MEDS ORDERED: ROCURONIUM 50 MG/5 ML VIAL IV ONE (11:33)
[2020-08-14] MEDS ORDERED: MIDAZOLAM 2 MG/2 ML VIAL ONE (11:38)
[2020-08-14] MEDS ORDERED: ePHEDrine 50 MG/ML VIAL ONE ×2 (11:57→13:14)
[2020-08-14] MEDS ORDERED: SEVOFLURANE 1 UNIT/15 MINUTE INH ONE ×7 (11:59→13:11)
[2020-08-14] MEDS ORDERED: LIDOCAINE 1%/EPI INJ 20 ML VIAL ONE (12:00)
[2020-08-14] MEDS ORDERED: BUPIVACAINE MPF 0.25% 30 ML VIAL ONE (12:00)
[2020-08-14] MEDS ORDERED: ACETAMINOPHEN 1,000 MG/100 ML VIAL IV ONE (12:02)
[2020-08-14] MEDS ORDERED: PHENYLEPHRINE 1 MG/10 ML SYRINGE IV ONE (12:40)
[2020-08-14] MEDS ORDERED: LACTATED RINGERS 1,000 ML IV ONE (12:40)
[2020-08-14] MEDS ORDERED: GLYCOPYRROLATE 0.4 MG/2 ML VIAL ONE (12:52)
[2020-08-14] MEDS ORDERED: NEOSTIGMINE 10 MG/10 ML VIAL ONE (12:52)
[2020-08-14] MEDS ORDERED: ONDANSETRON 4 MG/2 ML VIAL ONE ×2 (12:54)
[2020-08-14] MEDS ORDERED: TISSUE ADHESIVE 1 EACH APPLICATOR TOP ONE (12:57)
[2020-08-14] MEDS ORDERED: NITROGLYCERIN SL 0.4 MG TABLET SL PRN (14:43)
[2020-08-14] MEDS: HYDROmorphone 2 MG/1 ML VIAL IV PRN ×2 (15:10→17:37)
[2020-08-14] MEDS: ONDANSETRON 4 MG/2 ML VIAL IV PRN (15:10)
[2020-08-14] MEDS: LACTATED RINGERS 1,000 ML IV SCH ×2 (15:21→20:37)
[2020-08-14] MEDS: FERROUS GLUCONATE 324 MG TABLET PO SCH (20:28)
[2020-08-14] MEDS: PROMETHAZINE 25 MG/1 ML VIAL IM PRN (20:28)
[2020-08-14] MEDS: MAGNESIUM OXIDE 400 MG TABLET PO SCH (20:28)
[2020-08-14] MEDS: SOTALOL 80 MG TABLET PO SCH (20:29)
[2020-08-14] MEDS: PANTOPRAZOLE 40 MG TABLET PO SCH (20:29)
[2020-08-14] MEDS: carvediloL 3.125 MG TABLET PO SCH (20:29)
[2020-08-15] MEDS: HYDROmorphone 2 MG/1 ML VIAL IV PRN ×2 (02:37→09:42)
[2020-08-15] MEDS: LACTATED RINGERS 1,000 ML IV SCH ×3 (05:06→21:38)
[2020-08-15] MEDS: SOTALOL 80 MG TABLET PO SCH ×2 (08:31→21:20)
[2020-08-15] MEDS: MAGNESIUM OXIDE 400 MG TABLET PO SCH ×2 (08:31→21:21)
[2020-08-15] MEDS: FERROUS GLUCONATE 324 MG TABLET PO SCH ×2 (08:32→21:21)
[2020-08-15] MEDS: PANTOPRAZOLE 40 MG TABLET PO SCH ×2 (08:32→21:21)
[2020-08-15] MEDS: ISOSORBIDE MONONITRATE 60 MG TABLET PO SCH (08:32)
[2020-08-15] MEDS: carvediloL 3.125 MG TABLET PO SCH ×2 (08:32→21:21)
[2020-08-15] MEDS: ENOXAPARIN 40 MG/0.4 ML SYRINGE SUBCUT SCH (08:32)
[2020-08-15] MEDS: amLODIPine 5 MG TABLET PO SCH (08:32)
[2020-08-15 10:43] LABS: Bilirubin,Total 2.1 MG/DL (0.2-1.0); Calcium 8.2 MG/DL (8.5-10.1); Osmolality,Calculated 278.5 MOS/KG (273-304); Potassium 3.7 MMOL/L (3.5-5.1); Total Protein 5.8 G/DL (6.4-8.3)
[2020-08-15 10:53] LABS: Basophils % 0.5 % (0.0-0.8); Eosinophils # 0.1 10*3/uL (0.0-0.87); Eosinophils % 0.9 % (0.00-10.9); Hematocrit 34.5 VOL% (42.0-52.0); Hemoglobin 10.2 GM/DL (14.0-18.0); Immature Granulocytes % 1.1 %; Immature Granulocytes Absolute 0.07 #; Lymphocytes # 0.9 10*3/uL (1.4-4.0); Lymphocytes % 14.1 % (21.2-54.2); Mean Corpuscular HGB Conc 29.6 GM/DL (32-36); Mean Corpuscular Volume 88.7 FL (87-102); Mean Platelet Volume 9.4 FL (9.6-12.0); Monocytes % 11.3 % (1.7-12.7); Neutrophils % 72.1 % (38.7-73.9); Platelet Count 160 T/CUMM (130-400); Red Blood Count 3.89 MC/CUMM (3.8-5.5); White Blood Count 6.5 T/CUMM (4-12)
[2020-08-15] MEDS ORDERED: TAMSULOSIN 0.4 MG CAPSULE PO SCH (11:00)
[2020-08-15] MEDS: KETOROLAC 15 MG/1 ML VIAL IV SCH ×2 (12:46→17:30)
[2020-08-15] MEDS ORDERED: TAMSULOSIN 0.4 MG CAPSULE PO ONE (14:38)
[2020-08-15] MEDS: PHENAZOPYRIDINE 95 MG TABLET PO SCH (17:29)
[2020-08-15] MEDS: TAMSULOSIN 0.4 MG CAPSULE PO SCH (21:21)
[2020-08-15] MEDS: ONDANSETRON 4 MG/2 ML VIAL IV PRN (23:28)
[2020-08-16] MEDS: KETOROLAC 15 MG/1 ML VIAL IV SCH ×4 (00:38→17:40)
[2020-08-16 08:02] LABS: Basophils % 0.4 % (0.0-0.8); Eosinophils # 0.2 10*3/uL (0.0-0.87); Eosinophils % 3.2 % (0.00-10.9); Hematocrit 36.3 VOL% (42.0-52.0); Hemoglobin 10.8 GM/DL (14.0-18.0); Immature Granulocytes % 0.4 %; Immature Granulocytes Absolute 0.03 #; Lymphocytes % 14.7 % (21.2-54.2); Mean Corpuscular HGB Conc 29.8 GM/DL (32-36); Mean Corpuscular Volume 87.1 FL (87-102); Mean Platelet Volume 9.6 FL (9.6-12.0); Monocytes % 12.2 % (1.7-12.7); Neutrophils % 69.1 % (38.7-73.9); Platelet Count 158 T/CUMM (130-400); Red Blood Count 4.17 MC/CUMM (3.8-5.5); Red Cell Distribution Width 17.9 % (9.3-17.3)
[2020-08-16 08:29] LABS: Bilirubin,Total 3.7 MG/DL (0.2-1.0); Calcium 8.6 MG/DL (8.5-10.1); Osmolality,Calculated 272.1 MOS/KG (273-304); Potassium 3.9 MMOL/L (3.5-5.1); Total Protein 6.4 G/DL (6.4-8.3)
[2020-08-16] MEDS: PHENAZOPYRIDINE 95 MG TABLET PO SCH ×2 (09:10→17:39)
[2020-08-16] MEDS: ENOXAPARIN 40 MG/0.4 ML SYRINGE SUBCUT SCH (09:10)
[2020-08-16] MEDS: SOTALOL 80 MG TABLET PO SCH ×2 (09:11→21:04)
[2020-08-16] MEDS: MAGNESIUM OXIDE 400 MG TABLET PO SCH ×2 (09:11→21:04)
[2020-08-16] MEDS: PANTOPRAZOLE 40 MG TABLET PO SCH ×2 (09:11→21:04)
[2020-08-16] MEDS: TAMSULOSIN 0.4 MG CAPSULE PO SCH ×2 (09:11→21:04)
[2020-08-16] MEDS: ISOSORBIDE MONONITRATE 60 MG TABLET PO SCH (09:11)
[2020-08-16] MEDS: amLODIPine 5 MG TABLET PO SCH (09:11)
[2020-08-16] MEDS: carvediloL 3.125 MG TABLET PO SCH ×2 (09:11→21:04)
[2020-08-16] MEDS: FERROUS GLUCONATE 324 MG TABLET PO SCH ×2 (09:11→21:04)
[2020-08-16] MEDS ORDERED: LIDOCAINE 1%/EPI INJ 20 ML VIAL MISC INJ ONE (10:02)
[2020-08-16] MEDS: HYDROmorphone 2 MG/1 ML VIAL IV PRN (15:50)
[2020-08-16] MEDS: PROMETHAZINE 25 MG/1 ML VIAL IM PRN (17:40)
[2020-08-16] MEDS: LACTATED RINGERS 1,000 ML IV SCH ×2 (18:32→22:00)
[2020-08-17] MEDS: KETOROLAC 15 MG/1 ML VIAL IV SCH ×3 (01:29→15:08)
[2020-08-17] MEDS: HYDROmorphone 2 MG/1 ML VIAL IV PRN (01:30)
[2020-08-17 06:18] LABS: Albumin 2.8 G/DL (3.4-5.0); Bilirubin,Direct 0.78 MG/DL (0.0-0.20); Bilirubin,Indirect 1.2 MG/DL (0.0-1.0)
[2020-08-17] MEDS: ENOXAPARIN 40 MG/0.4 ML SYRINGE SUBCUT SCH (06:39)
[2020-08-17] MEDS: ONDANSETRON 4 MG/2 ML VIAL IV PRN (06:51)
[2020-08-17 09:04] LABS: Basophils % 0.3 % (0.0-0.8); Eosinophils # 0.3 10*3/uL (0.0-0.87); Eosinophils % 4.4 % (0.00-10.9); Hematocrit 35.2 VOL% (42.0-52.0); Hemoglobin 10.4 GM/DL (14.0-18.0); Immature Granulocytes % 0.3 %; Immature Granulocytes Absolute 0.02 #; Lymphocytes # 1.2 10*3/uL (1.4-4.0); Lymphocytes % 17.5 % (21.2-54.2); Mean Corpuscular HGB Conc 29.5 GM/DL (32-36); Mean Corpuscular Volume 88.4 FL (87-102); Mean Platelet Volume 10.2 FL (9.6-12.0); Monocytes % 13.1 % (1.7-12.7); Neutrophils % 64.4 % (38.7-73.9); Platelet Count 165 T/CUMM (130-400); Red Blood Count 3.98 MC/CUMM (3.8-5.5); White Blood Count 6.8 T/CUMM (4-12)
[2020-08-17 09:08] LABS: Calcium 8.3 MG/DL (8.5-10.1); Osmolality,Calculated 274.8 MOS/KG (273-304); Potassium 4.1 MMOL/L (3.5-5.1)
[2020-08-17 09:21] LABS: Anisocytosis 1+; Platelet Estimate Normal; Tear Drop Cells Few
[2020-08-17 09:22] LABS: Macrocytosis 1+; Ovalocytes Few; Polychromasia Slight
[2020-08-17 09:55] VITALS: BP 117/72
[2020-08-17] MEDS: MAGNESIUM OXIDE 400 MG TABLET PO SCH (09:59)
[2020-08-17] MEDS: amLODIPine 5 MG TABLET PO SCH (09:59)
[2020-08-17] MEDS ORDERED: CLOPIDOGREL 75 MG TABLET PO SCH (10:00)
[2020-08-17] MEDS: PHENAZOPYRIDINE 95 MG TABLET PO SCH (10:01)
[2020-08-17] MEDS: ISOSORBIDE MONONITRATE 60 MG TABLET PO SCH (10:02)
[2020-08-17] MEDS: PANTOPRAZOLE 40 MG TABLET PO SCH (10:02)
[2020-08-17] MEDS: TAMSULOSIN 0.4 MG CAPSULE PO SCH (10:02)
[2020-08-17] MEDS: FERROUS GLUCONATE 324 MG TABLET PO SCH (10:02)
[2020-08-17] MEDS: carvediloL 3.125 MG TABLET PO SCH (10:02)
[2020-08-17] MEDS: SOTALOL 80 MG TABLET PO SCH (10:03)
[2020-08-17] MEDS: LACTATED RINGERS 1,000 ML IV SCH (10:04)
[2020-08-18] MEDS ORDERED: APIXABAN 5 MG TABLET PO SCH (09:00)
== END 2020-08-17 13:56 | disposition home or self-care (01) ==
LOC: N.TELEN 10:03 → N.OR 10:03 → N.SDSINP 10:06 → N.TELEN 15:17
PROVIDERS: ADMIT Surgery; ATTEND Surgery

== ENCOUNTER 2020-08-21 16:34 | Inpatient (IN) ==
[2020-08-21] MEDS ORDERED: ACETAMINOPHEN 325 MG TABLET PO PRN (16:45)
[2020-08-21] MEDS ORDERED: HYDROmorphone 2 MG/1 ML VIAL IV PRN (16:45)
[2020-08-21] MEDS ORDERED: ONDANSETRON 4 MG/2 ML VIAL IV PRN (16:45)
[2020-08-21 19:46] LABS: Albumin 2.9 G/DL (3.4-5.0); Bilirubin,Total 0.9 MG/DL (0.2-1.0); Calcium 8.1 MG/DL (8.5-10.1); Osmolality,Calculated 281.3 MOS/KG (273-304); Potassium 4.1 MMOL/L (3.5-5.1); Total Protein 6.3 G/DL (6.4-8.3)
[2020-08-21 20:05] LABS: Basophils # 0.1 10*3/uL (0.0-0.2); Basophils % 0.8 % (0.0-0.8); Eosinophils # 0.4 10*3/uL (0.0-0.87); Eosinophils % 6.1 % (0.00-10.9); Hematocrit 36.7 VOL% (42.0-52.0); Hemoglobin 10.5 GM/DL (14.0-18.0); Immature Granulocytes % 0.5 %; Immature Granulocytes Absolute 0.03 #; Lymphocytes # 1.4 10*3/uL (1.4-4.0); Lymphocytes % 22.8 % (21.2-54.2); Mean Corpuscular HGB Conc 28.6 GM/DL (32-36); Mean Platelet Volume 9.3 FL (9.6-12.0); Monocytes % 11.3 % (1.7-12.7); Neutrophils % 58.5 % (38.7-73.9); Platelet Count 215 T/CUMM (130-400); Red Blood Count 4.08 MC/CUMM (3.8-5.5); Red Cell Distribution Width 18.4 % (9.3-17.3); White Blood Count 5.9 T/CUMM (4-12)
[2020-08-21] MEDS: PIPERACILLIN/TAZOBACTAM 3,375 MG in SODIUM CHLORIDE 0.9% 100 ML IV SCH (20:41)
[2020-08-22] MEDS: PROMETHAZINE 25 MG/1 ML VIAL IM PRN (02:49)
[2020-08-22] MEDS: PIPERACILLIN/TAZOBACTAM 3,375 MG in SODIUM CHLORIDE 0.9% 100 ML IV SCH ×3 (05:24→21:28)
[2020-08-22 06:34] LABS: Basophils # 0.1 10*3/uL (0.0-0.2); Eosinophils # 0.3 10*3/uL (0.0-0.87); Eosinophils % 5.2 % (0.00-10.9); Hematocrit 34.9 VOL% (42.0-52.0); Hemoglobin 10.3 GM/DL (14.0-18.0); Immature Granulocytes % 0.2 %; Immature Granulocytes Absolute 0.01 #; Lymphocytes # 1.3 10*3/uL (1.4-4.0); Mean Corpuscular HGB Conc 29.5 GM/DL (32-36); Mean Corpuscular Volume 87.7 FL (87-102); Mean Platelet Volume 9.1 FL (9.6-12.0); Monocytes % 11.8 % (1.7-12.7); Neutrophils % 59.8 % (38.7-73.9); Platelet Count 203 T/CUMM (130-400); Red Blood Count 3.98 MC/CUMM (3.8-5.5); Red Cell Distribution Width 18.6 % (9.3-17.3); White Blood Count 5.7 T/CUMM (4-12)
[2020-08-22] MEDS ORDERED: OXYMETAZOLINE 0.05% NASAL SPRAY 15 ML BOTTLE BOTH NARES PRN (06:44)
[2020-08-22] MEDS ORDERED: NITROGLYCERIN SL 0.4 MG TABLET SL PRN (06:44)
[2020-08-22 06:59] LABS: Albumin 2.7 G/DL (3.4-5.0); Bilirubin,Total 1.4 MG/DL (0.2-1.0); Calcium 8.3 MG/DL (8.5-10.1); Osmolality,Calculated 286.8 MOS/KG (273-304); Potassium 3.9 MMOL/L (3.5-5.1); Total Protein 6.1 G/DL (6.4-8.3)
[2020-08-22] MEDS ORDERED: SULFAMETHOX/TRIMETHOPRIM 800-160 MG TABLET PO SCH (09:00)
[2020-08-22] MEDS: MAGNESIUM OXIDE 400 MG TABLET PO SCH ×2 (09:06→21:29)
[2020-08-22] MEDS: APIXABAN 5 MG TABLET PO SCH ×2 (09:06→21:30)
[2020-08-22] MEDS: FUROSEMIDE 40 MG TABLET PO SCH (09:07)
[2020-08-22] MEDS: carvediloL 3.125 MG TABLET PO SCH ×2 (09:07→21:31)
[2020-08-22] MEDS: ISOSORBIDE MONONITRATE 60 MG TABLET PO SCH (09:07)
[2020-08-22] MEDS: amLODIPine 2.5 MG TABLET PO SCH (09:07)
[2020-08-22] MEDS: CLOPIDOGREL 75 MG TABLET PO SCH (09:07)
[2020-08-22] MEDS: SOTALOL 80 MG TABLET PO SCH ×2 (09:07→21:30)
[2020-08-22] MEDS: PANTOPRAZOLE 40 MG TABLET PO SCH ×3 (09:08→21:31)
[2020-08-22] MEDS: FERROUS SULFATE 325 MG TABLET PO SCH ×2 (09:12→21:29)
[2020-08-22] MEDS: DICYCLOMINE 20 MG TABLET PO SCH ×5 (09:12→21:30)
[2020-08-22] MEDS ORDERED: VANCOMYCIN INJ 1,000 MG in SODIUM CHLORIDE 0.9% 250 ML IV SCH (09:30)
[2020-08-22] MEDS ORDERED: VANCOMYCIN INJ 1,250 MG in SODIUM CHLORIDE 0.9% 250 ML IV ONE (11:00)
[2020-08-22] MEDS: TAMSULOSIN 0.4 MG CAPSULE PO SCH (17:14)
[2020-08-22] MEDS: ONDANSETRON ODT 4 MG TABLET PO PRN (23:23)
[2020-08-23] MEDS: PROMETHAZINE 25 MG/1 ML VIAL IM PRN (01:46)
[2020-08-23] MEDS: PIPERACILLIN/TAZOBACTAM 3,375 MG in SODIUM CHLORIDE 0.9% 100 ML IV SCH (04:33)
[2020-08-23] MEDS ORDERED: VANCOMYCIN INJ 1,250 MG in SODIUM CHLORIDE 0.9% 250 ML IV SCH (05:00)
[2020-08-23] MEDS ORDERED: FUROSEMIDE 40 MG/4 ML VIAL IV ONE (07:34)
[2020-08-23] MEDS: SOTALOL 80 MG TABLET PO SCH ×2 (08:30→21:41)
[2020-08-23] MEDS: DICYCLOMINE 20 MG TABLET PO SCH ×4 (08:30→21:41)
[2020-08-23] MEDS: FUROSEMIDE 40 MG TABLET PO SCH (08:31)
[2020-08-23] MEDS: APIXABAN 5 MG TABLET PO SCH ×2 (08:31→21:41)
[2020-08-23] MEDS: MAGNESIUM OXIDE 400 MG TABLET PO SCH ×2 (08:31→21:40)
[2020-08-23] MEDS: amLODIPine 2.5 MG TABLET PO SCH (08:31)
[2020-08-23] MEDS: CEFUROXIME 250 MG TABLET PO SCH ×2 (08:31→21:40)
[2020-08-23] MEDS: FERROUS SULFATE 325 MG TABLET PO SCH ×2 (08:31→21:40)
[2020-08-23] MEDS: carvediloL 3.125 MG TABLET PO SCH ×2 (08:31→21:41)
[2020-08-23] MEDS: CLOPIDOGREL 75 MG TABLET PO SCH (08:31)
[2020-08-23] MEDS: ISOSORBIDE MONONITRATE 60 MG TABLET PO SCH (08:31)
[2020-08-23] MEDS: PANTOPRAZOLE 40 MG TABLET PO SCH ×3 (08:32→21:41)
[2020-08-23 09:17] LABS: Calcium 8.1 MG/DL (8.5-10.1); Osmolality,Calculated 282.3 MOS/KG (273-304); Potassium 3.8 MMOL/L (3.5-5.1)
[2020-08-23] MEDS: TAMSULOSIN 0.4 MG CAPSULE PO SCH (17:04)
[2020-08-23] MEDS ORDERED: ZALEPLON 5 MG CAPSULE PO PRN (19:55)
[2020-08-23] MEDS: SULFAMETHOX/TRIMETHOPRIM 800-160 MG TABLET PO SCH (21:40)
[2020-08-23] MEDS: ONDANSETRON ODT 4 MG TABLET PO PRN (21:48)
[2020-08-24 06:20] LABS: Calcium 8.2 MG/DL (8.5-10.1); Osmolality,Calculated 280.3 MOS/KG (273-304); Potassium 3.6 MMOL/L (3.5-5.1)
[2020-08-24 06:48] LABS: Basophils # 0.1 10*3/uL (0.0-0.2); Basophils % 1.1 % (0.0-0.8); Eosinophils # 0.3 10*3/uL (0.0-0.87); Hematocrit 34.9 VOL% (42.0-52.0); Hemoglobin 10.5 GM/DL (14.0-18.0); Immature Granulocytes % 0.5 %; Immature Granulocytes Absolute 0.03 #; Lymphocytes # 1.3 10*3/uL (1.4-4.0); Lymphocytes % 23.7 % (21.2-54.2); Mean Corpuscular HGB Conc 30.1 GM/DL (32-36); Mean Corpuscular Volume 88.1 FL (87-102); Mean Platelet Volume 9.4 FL (9.6-12.0); Monocytes % 10.4 % (1.7-12.7); Neutrophils % 58.3 % (38.7-73.9); Platelet Count 203 T/CUMM (130-400); Red Blood Count 3.96 MC/CUMM (3.8-5.5); Red Cell Distribution Width 18.5 % (9.3-17.3); White Blood Count 5.7 T/CUMM (4-12)
[2020-08-24 07:59] VITALS: BP 113/74
[2020-08-24] MEDS: CEFUROXIME 250 MG TABLET PO SCH (09:14)
[2020-08-24] MEDS: amLODIPine 2.5 MG TABLET PO SCH (09:15)
[2020-08-24] MEDS: carvediloL 3.125 MG TABLET PO SCH (09:17)
[2020-08-24] MEDS: DICYCLOMINE 20 MG TABLET PO SCH (09:17)
[2020-08-24] MEDS: SULFAMETHOX/TRIMETHOPRIM 800-160 MG TABLET PO SCH (09:18)
[2020-08-24] MEDS: SOTALOL 80 MG TABLET PO SCH (09:18)
[2020-08-24] MEDS: APIXABAN 5 MG TABLET PO SCH (09:18)
[2020-08-24] MEDS: FERROUS SULFATE 325 MG TABLET PO SCH (09:19)
[2020-08-24] MEDS: ISOSORBIDE MONONITRATE 60 MG TABLET PO SCH (09:20)
[2020-08-24] MEDS: FUROSEMIDE 40 MG TABLET PO SCH (09:20)
[2020-08-24] MEDS: PANTOPRAZOLE 40 MG TABLET PO SCH (09:21)
[2020-08-24] MEDS: CLOPIDOGREL 75 MG TABLET PO SCH (09:21)
[2020-08-24] MEDS: MAGNESIUM OXIDE 400 MG TABLET PO SCH (09:21)
== END 2020-08-24 13:18 | disposition home or self-care (01) | DRG 863 ==
LOC: N.3E 17:28
PROVIDERS: ADMIT Surgery; ATTEND Surgery

== ENCOUNTER 2020-12-12 15:01 | Inpatient (IN) ==
[2020-12-12 16:59] LABS: Basophils % 0.4 % (0.0-0.8); Eosinophils % 0.3 % (0.00-10.9); Hematocrit 27.4 VOL% (42.0-52.0); Hemoglobin 8.2 GM/DL (14.0-18.0); Immature Granulocytes % 0.5 %; Immature Granulocytes Absolute 0.04 #; Lymphocytes # 0.9 10*3/uL (1.4-4.0); Lymphocytes % 11.9 % (21.2-54.2); Mean Corpuscular HGB Conc 29.9 GM/DL (32-36); Mean Corpuscular Volume 96.8 FL (87-102); Mean Platelet Volume 9.7 FL (9.6-12.0); Monocytes % 9.5 % (1.7-12.7); Neutrophils % 77.4 % (38.7-73.9); Platelet Count 183 T/CUMM (130-400); Red Blood Count 2.83 MC/CUMM (3.8-5.5); Red Cell Distribution Width 14.9 % (9.3-17.3); White Blood Count 7.3 T/CUMM (4-12)
[2020-12-12] MEDS ORDERED: PROMETHAZINE 25 MG/1 ML VIAL IM STA (17:15)
[2020-12-12 17:18] LABS: Albumin 3.4 G/DL (3.4-5.0); Calcium 8.5 MG/DL (8.5-10.1); Potassium 4.7 MMOL/L (3.5-5.1); Total Protein 6.6 G/DL (6.4-8.2)
[2020-12-12 17:28] LABS: INR 1.3; PT Patient Result 14.5 SECS (10.5-12.0)
[2020-12-12 19:59] LABS: Bilirubin,Urine Negative (Negative); Blood, Urine Negative (Negative); Glucose,Urine (UA) Negative (Negative); Hyaline Casts,Urine 3 /LPF (0-3); Ketones,Urine 20 mg/dL (Negative); Mucus,Urine Moderate /LPF (Occasional); Nitrite,Urine Negative (Negative); Protein,Urine Negative; RBC,Urine 1 /HPF (0-4); Squamous Epithelial Cell,Urine Occasional /HPF (0-10); Urine Appearance CLEAR (Clear); Urine Color Amber (Yellow); Urine Specific Gravity 1.024 (1.001-1.035)
[2020-12-12] MEDS ORDERED: NITROGLYCERIN SL 0.4 MG TABLET SL STA (20:34)
[2020-12-12] MEDS ORDERED: PROTHROMBIN COMPLEX CONC 3,500 UNIT in IV BAG 1 EACH IV ONE (21:13)
[2020-12-12] MEDS ORDERED: SODIUM CHLORIDE 0.9% 1,000 ML IV PRN ×2 (21:13→21:14)
[2020-12-12] MEDS ORDERED: PROTHROMBIN COMPLEX IV ONE ×2 (22:00→23:00)
[2020-12-12] MEDS ORDERED: ALBUTEROL 2.5 MG/3 ML NEB RESP TX PRN (22:18)
[2020-12-12] MEDS: PROMETHAZINE 25 MG/1 ML VIAL IM PRN (23:00)
[2020-12-12] MEDS: PANTOPRAZOLE 40 MG VIAL IV SCH (23:01)
[2020-12-12 23:07] LABS: Basophils % 0.2 % (0.0-0.8); Eosinophils % 0.1 % (0.00-10.9); Hematocrit 25.9 VOL% (42.0-52.0); Immature Granulocytes % 0.6 %; Immature Granulocytes Absolute 0.05 #; Lymphocytes % 12.7 % (21.2-54.2); Mean Corpuscular HGB Conc 30.9 GM/DL (32-36); Mean Corpuscular Volume 95.9 FL (87-102); Mean Platelet Volume 9.7 FL (9.6-12.0); Neutrophils % 76.4 % (38.7-73.9); Platelet Count 186 T/CUMM (130-400); Red Cell Distribution Width 15.1 % (9.3-17.3); White Blood Count 8.1 T/CUMM (4-12)
[2020-12-13 02:21] LABS: Hematocrit 24.1 VOL% (42.0-52.0); Hemoglobin 7.5 GM/DL (14.0-18.0)
[2020-12-13] MEDS: ONDANSETRON 4 MG/2 ML VIAL IV PRN (03:32)
[2020-12-13] MEDS ORDERED: FUROSEMIDE 40 MG/4 ML VIAL IV ONE (05:00)
[2020-12-13] MEDS ORDERED: FUROSEMIDE 40 MG/4 ML VIAL IV SCH (09:00)
[2020-12-13 09:48] LABS: Basophils % 0.4 % (0.0-0.8); Eosinophils % 0.4 % (0.00-10.9); Hematocrit 30.2 VOL% (42.0-52.0); Immature Granulocytes % 0.6 %; Immature Granulocytes Absolute 0.04 #; Lymphocytes # 1.1 10*3/uL (1.4-4.0); Lymphocytes % 15.5 % (21.2-54.2); Mean Corpuscular HGB Conc 31.8 GM/DL (32-36); Mean Corpuscular Volume 92.4 FL (87-102); Mean Platelet Volume 9.6 FL (9.6-12.0); Monocytes % 14.2 % (1.7-12.7); Neutrophils % 68.9 % (38.7-73.9); Platelet Count 180 T/CUMM (130-400); Red Blood Count 3.27 MC/CUMM (3.8-5.5); Red Cell Distribution Width 15.9 % (9.3-17.3); White Blood Count 7.2 T/CUMM (4-12)
[2020-12-13 09:51] LABS: Hemoglobin 9.6 GM/DL (14.0-18.0)
[2020-12-13 10:21] LABS: Albumin 3.4 G/DL (3.4-5.0); Bilirubin,Total 3.1 MG/DL (0.2-1.0); Calcium 8.6 MG/DL (8.5-10.1); Osmolality,Calculated 275.8 MOS/KG (273-304); Potassium 3.9 MMOL/L (3.5-5.1); Total Protein 6.7 G/DL (6.4-8.2)
[2020-12-13] MEDS ORDERED: ISOSORBIDE MONONITRATE 30 MG TABLET PO SCH (11:00)
[2020-12-13] MEDS: ASPIRIN EC 81 MG TABLET PO SCH (12:21)
[2020-12-13] MEDS: TAMSULOSIN 0.4 MG CAPSULE PO SCH (16:51)
[2020-12-13] MEDS: PROMETHAZINE 25 MG/1 ML VIAL IM PRN (17:12)
[2020-12-13] MEDS: SOTALOL 80 MG TABLET PO SCH (20:50)
[2020-12-13] MEDS: PANTOPRAZOLE 40 MG VIAL IV SCH (21:49)
[2020-12-14 05:15] LABS: Basophils % 0.7 % (0.0-0.8); Eosinophils # 0.1 10*3/uL (0.0-0.87); Eosinophils % 1.1 % (0.00-10.9); Hematocrit 27.1 VOL% (42.0-52.0); Hemoglobin 8.6 GM/DL (14.0-18.0); Immature Granulocytes % 0.4 %; Immature Granulocytes Absolute 0.02 #; Lymphocytes # 1.2 10*3/uL (1.4-4.0); Lymphocytes % 21.6 % (21.2-54.2); Mean Corpuscular HGB Conc 31.7 GM/DL (32-36); Mean Corpuscular Volume 91.2 FL (87-102); Mean Platelet Volume 9.6 FL (9.6-12.0); Monocytes % 14.6 % (1.7-12.7); Neutrophils % 61.6 % (38.7-73.9); Platelet Count 165 T/CUMM (130-400); Red Blood Count 2.97 MC/CUMM (3.8-5.5); Red Cell Distribution Width 16.3 % (9.3-17.3); White Blood Count 5.4 T/CUMM (4-12)
[2020-12-14 05:49] LABS: Potassium 3.6 MMOL/L (3.5-5.1)
[2020-12-14] MEDS ORDERED: NITROGLYCERIN SL 0.4 MG TABLET SL PRN (06:47)
[2020-12-14] MEDS ORDERED: HYOSCYAMINE 0.125 MG TABLET SL PRN (06:47)
[2020-12-14] MEDS ORDERED: OXYMETAZOLINE 0.05% NASAL SPRAY 15 ML BOTTLE BOTH NARES PRN (06:47)
[2020-12-14 07:38] LABS: Albumin 2.8 G/DL (3.4-5.0); Bilirubin,Direct 0.95 MG/DL (0.0-0.20); Bilirubin,Indirect 0.6 MG/DL (0.0-1.0); Bilirubin,Total 1.5 MG/DL (0.2-1.0); Total Protein 5.8 G/DL (6.4-8.2)
[2020-12-14] MEDS: SPIRONOLACTONE 50 MG TABLET PO SCH (08:36)
[2020-12-14] MEDS: ASPIRIN EC 81 MG TABLET PO SCH (08:36)
[2020-12-14] MEDS: SOTALOL 80 MG TABLET PO SCH ×2 (08:36→21:08)
[2020-12-14] MEDS: MAGNESIUM OXIDE 400 MG TABLET PO SCH ×2 (08:36→21:08)
[2020-12-14] MEDS: ISOSORBIDE MONONITRATE 30 MG TABLET PO SCH (08:37)
[2020-12-14] MEDS: amLODIPine 2.5 MG TABLET PO SCH (08:37)
[2020-12-14] MEDS: MONTELUKAST 10 MG TABLET PO SCH (08:37)
[2020-12-14] MEDS: FUROSEMIDE 40 MG TABLET PO SCH (08:37)
[2020-12-14] MEDS: LEVOTHYROXINE 50 MCG TABLET PO SCH (08:37)
[2020-12-14] MEDS: FERROUS SULFATE 325 MG TABLET PO SCH ×2 (08:37→21:09)
[2020-12-14] MEDS: DICYCLOMINE 20 MG TABLET PO SCH ×4 (08:37→21:07)
[2020-12-14] MEDS: carvediloL 3.125 MG TABLET PO SCH ×2 (08:38→21:08)
[2020-12-14] MEDS ORDERED: NON-FORMULARY MEDICATION (Esomeprazole Magnesium [Nexium] 40 mg Capsule,Delayed Release(Dr PO SCH (09:00)
[2020-12-14] MEDS: FINASTERIDE 5 MG TABLET PO SCH (10:32)
[2020-12-14] MEDS: GABAPENTIN 100 MG CAPSULE PO SCH ×3 (10:32→21:08)
[2020-12-14 12:04] LABS: Hematocrit 29.5 VOL% (42.0-52.0); Hemoglobin 9.3 GM/DL (14.0-18.0)
[2020-12-14] MEDS: POLYETHYLENE GLYCOL POWDER 17 GM PACK PO SCH (14:41)
[2020-12-14] MEDS: DOCUSATE SODIUM 100 MG CAPSULE PO SCH (14:41)
[2020-12-14] MEDS: TAMSULOSIN 0.4 MG CAPSULE PO SCH (16:28)
[2020-12-14] MEDS: PANTOPRAZOLE 40 MG VIAL IV SCH (21:28)
[2020-12-15 05:44] LABS: Osmolality,Calculated 278.4 MOS/KG (273-304)
[2020-12-15] MEDS: LEVOTHYROXINE 50 MCG TABLET PO SCH (06:06)
[2020-12-15 06:25] LABS: Basophils # 0.1 10*3/uL (0.0-0.2); Basophils % 0.9 % (0.0-0.8); Eosinophils # 0.2 10*3/uL (0.0-0.87); Eosinophils % 2.8 % (0.00-10.9); Hematocrit 29.3 VOL% (42.0-52.0); Hemoglobin 9.2 GM/DL (14.0-18.0); Immature Granulocytes % 0.4 %; Immature Granulocytes Absolute 0.02 #; Lymphocytes # 1.4 10*3/uL (1.4-4.0); Lymphocytes % 26.7 % (21.2-54.2); Mean Corpuscular HGB Conc 31.4 GM/DL (32-36); Mean Corpuscular Volume 94.2 FL (87-102); Mean Platelet Volume 9.1 FL (9.6-12.0); Monocytes % 13.6 % (1.7-12.7); Neutrophils % 55.6 % (38.7-73.9); Platelet Count 150 T/CUMM (130-400); Red Blood Count 3.11 MC/CUMM (3.8-5.5); Red Cell Distribution Width 16.5 % (9.3-17.3); White Blood Count 5.3 T/CUMM (4-12)
[2020-12-15 07:06] LABS: Band Neutrophils 4 % (0-10); Eosinophils 4 % (0-10); Lymphocytes 30 % (20-55); Platelet Estimate Normal; Segmented Neutrophils 50 % (50-85); Total Cells Counted 100
[2020-12-15 07:07] LABS: Anisocytosis 2+; Hypochromasia 1+; Macrocytosis 1+; Polychromasia Slight
[2020-12-15] MEDS: ISOSORBIDE MONONITRATE 30 MG TABLET PO SCH (08:41)
[2020-12-15] MEDS: FINASTERIDE 5 MG TABLET PO SCH (08:41)
[2020-12-15] MEDS: ASPIRIN EC 81 MG TABLET PO SCH (08:41)
[2020-12-15] MEDS: MONTELUKAST 10 MG TABLET PO SCH (08:41)
[2020-12-15] MEDS: GABAPENTIN 100 MG CAPSULE PO SCH ×3 (08:41→20:16)
[2020-12-15] MEDS: SOTALOL 80 MG TABLET PO SCH ×2 (08:41→20:16)
[2020-12-15] MEDS: FERROUS SULFATE 325 MG TABLET PO SCH ×2 (08:42→20:15)
[2020-12-15] MEDS: DOCUSATE SODIUM 100 MG CAPSULE PO SCH (08:42)
[2020-12-15] MEDS: MAGNESIUM OXIDE 400 MG TABLET PO SCH ×2 (08:42→20:15)
[2020-12-15] MEDS: FUROSEMIDE 40 MG TABLET PO SCH (08:42)
[2020-12-15] MEDS: SPIRONOLACTONE 50 MG TABLET PO SCH (08:42)
[2020-12-15] MEDS: DICYCLOMINE 20 MG TABLET PO SCH ×4 (08:42→20:16)
[2020-12-15] MEDS: POLYETHYLENE GLYCOL POWDER 17 GM PACK PO SCH (08:43)
[2020-12-15] MEDS: amLODIPine 2.5 MG TABLET PO SCH (08:49)
[2020-12-15] MEDS: carvediloL 3.125 MG TABLET PO SCH ×2 (08:49→20:16)
[2020-12-15] MEDS: BACLOFEN 10 MG TABLET PO PRN (10:46)
[2020-12-15] MEDS ORDERED: MAGNESIUM HYDROXIDE SUSP 30 ML UDCUP PO PRN (12:18)
[2020-12-15] MEDS ORDERED: MAGNESIUM CITRATE 300 ML BOTTLE PO PRN (12:18)
[2020-12-15] MEDS: TAMSULOSIN 0.4 MG CAPSULE PO SCH (16:19)
[2020-12-15] MEDS: PANTOPRAZOLE 40 MG VIAL IV SCH (22:36)
[2020-12-16 05:27] LABS: Basophils # 0.1 10*3/uL (0.0-0.2); Basophils % 0.8 % (0.0-0.8); Eosinophils # 0.2 10*3/uL (0.0-0.87); Eosinophils % 3.7 % (0.00-10.9); Hematocrit 28.3 VOL% (42.0-52.0); Immature Granulocytes % 0.5 %; Immature Granulocytes Absolute 0.03 #; Lymphocytes # 1.4 10*3/uL (1.4-4.0); Lymphocytes % 23.3 % (21.2-54.2); Mean Corpuscular HGB Conc 31.8 GM/DL (32-36); Mean Corpuscular Volume 95.6 FL (87-102); Mean Platelet Volume 9.7 FL (9.6-12.0); Monocytes % 12.6 % (1.7-12.7); Neutrophils % 59.1 % (38.7-73.9); Platelet Count 150 T/CUMM (130-400); Red Blood Count 2.96 MC/CUMM (3.8-5.5); Red Cell Distribution Width 16.7 % (9.3-17.3); White Blood Count 5.9 T/CUMM (4-12)
[2020-12-16 05:36] LABS: Calcium 8.2 MG/DL (8.5-10.1); Osmolality,Calculated 283.1 MOS/KG (273-304); Potassium 4.1 MMOL/L (3.5-5.1)
[2020-12-16] MEDS: LEVOTHYROXINE 50 MCG TABLET PO SCH (07:37)
[2020-12-16] MEDS: BACLOFEN 10 MG TABLET PO PRN ×2 (07:37→15:25)
[2020-12-16] MEDS: SOTALOL 80 MG TABLET PO SCH ×2 (09:45→20:10)
[2020-12-16] MEDS: ISOSORBIDE MONONITRATE 30 MG TABLET PO SCH (09:45)
[2020-12-16] MEDS: SPIRONOLACTONE 50 MG TABLET PO SCH (09:46)
[2020-12-16] MEDS: DICYCLOMINE 20 MG TABLET PO SCH ×4 (09:46→20:09)
[2020-12-16] MEDS: ASPIRIN EC 81 MG TABLET PO SCH (09:46)
[2020-12-16] MEDS: carvediloL 3.125 MG TABLET PO SCH ×2 (09:46→20:10)
[2020-12-16] MEDS: amLODIPine 2.5 MG TABLET PO SCH (09:46)
[2020-12-16] MEDS: FINASTERIDE 5 MG TABLET PO SCH (09:46)
[2020-12-16] MEDS: MAGNESIUM OXIDE 400 MG TABLET PO SCH ×2 (09:46→20:09)
[2020-12-16] MEDS: FERROUS SULFATE 325 MG TABLET PO SCH ×2 (09:46→20:09)
[2020-12-16] MEDS: FUROSEMIDE 40 MG TABLET PO SCH (09:47)
[2020-12-16] MEDS: MONTELUKAST 10 MG TABLET PO SCH (09:47)
[2020-12-16] MEDS: GABAPENTIN 100 MG CAPSULE PO SCH ×3 (09:47→20:09)
[2020-12-16] MEDS: POLYETHYLENE GLYCOL POWDER 17 GM PACK PO SCH (10:31)
[2020-12-16] MEDS: DOCUSATE SODIUM 100 MG CAPSULE PO SCH (10:31)
[2020-12-16] MEDS: TAMSULOSIN 0.4 MG CAPSULE PO SCH (17:56)
[2020-12-16] MEDS: PANTOPRAZOLE 40 MG VIAL IV SCH (22:45)
[2020-12-17] MEDS: ONDANSETRON 4 MG/2 ML VIAL IV PRN ×3 (02:05→23:52)
[2020-12-17 04:55] LABS: Basophils % 0.5 % (0.0-0.8); Eosinophils # 0.1 10*3/uL (0.0-0.87); Hematocrit 29.2 VOL% (42.0-52.0); Immature Granulocytes % 0.3 %; Immature Granulocytes Absolute 0.02 #; Lymphocytes # 1.1 10*3/uL (1.4-4.0); Lymphocytes % 18.4 % (21.2-54.2); Mean Corpuscular HGB Conc 30.8 GM/DL (32-36); Mean Corpuscular Volume 95.7 FL (87-102); Mean Platelet Volume 9.9 FL (9.6-12.0); Monocytes % 11.4 % (1.7-12.7); Neutrophils % 67.4 % (38.7-73.9); Platelet Count 161 T/CUMM (130-400); Red Blood Count 3.05 MC/CUMM (3.8-5.5); Red Cell Distribution Width 16.4 % (9.3-17.3)
[2020-12-17 05:09] LABS: Calcium 8.2 MG/DL (8.5-10.1); Osmolality,Calculated 277.4 MOS/KG (273-304); Potassium 3.8 MMOL/L (3.5-5.1)
[2020-12-17 05:21] LABS: Eosinophils 1 % (0-10); Hypochromasia 1+; Lymphocytes 14 % (20-55); Microcytosis 1+; Platelet Estimate Adequate; Segmented Neutrophils 75 % (50-85); Total Cells Counted 100
[2020-12-17] MEDS: LEVOTHYROXINE 50 MCG TABLET PO SCH (06:26)
[2020-12-17] MEDS: FERROUS SULFATE 325 MG TABLET PO SCH ×2 (09:42→20:42)
[2020-12-17] MEDS: ASPIRIN EC 81 MG TABLET PO SCH (09:42)
[2020-12-17] MEDS: MONTELUKAST 10 MG TABLET PO SCH (09:42)
[2020-12-17] MEDS: FUROSEMIDE 40 MG TABLET PO SCH (09:42)
[2020-12-17] MEDS: DOCUSATE SODIUM 100 MG CAPSULE PO SCH (09:43)
[2020-12-17] MEDS: MAGNESIUM OXIDE 400 MG TABLET PO SCH ×2 (09:43→20:42)
[2020-12-17] MEDS: FINASTERIDE 5 MG TABLET PO SCH (09:43)
[2020-12-17] MEDS: SOTALOL 80 MG TABLET PO SCH ×2 (09:43→20:42)
[2020-12-17] MEDS: GABAPENTIN 100 MG CAPSULE PO SCH ×3 (09:44→20:42)
[2020-12-17] MEDS: POLYETHYLENE GLYCOL POWDER 17 GM PACK PO SCH (09:44)
[2020-12-17] MEDS: DICYCLOMINE 20 MG TABLET PO SCH ×4 (09:44→20:42)
[2020-12-17] MEDS: SPIRONOLACTONE 50 MG TABLET PO SCH (09:44)
[2020-12-17] MEDS: amLODIPine 2.5 MG TABLET PO SCH (10:31)
[2020-12-17] MEDS: ISOSORBIDE MONONITRATE 30 MG TABLET PO SCH (10:31)
[2020-12-17] MEDS: carvediloL 3.125 MG TABLET PO SCH ×2 (10:31→20:42)
[2020-12-17 12:02] LABS: Albumin 3.3 G/DL (3.4-5.0); Bilirubin,Direct 0.87 MG/DL (0.0-0.20); Bilirubin,Indirect 0.5 MG/DL (0.0-1.0); Bilirubin,Total 1.4 MG/DL (0.2-1.0); Total Protein 6.9 G/DL (6.4-8.2)
[2020-12-17] MEDS: TAMSULOSIN 0.4 MG CAPSULE PO SCH (16:34)
[2020-12-17] MEDS ORDERED: CHOLESTYRAMINE 4 GM PACK PO PRN (18:15)
[2020-12-17] MEDS: PANTOPRAZOLE 40 MG VIAL IV SCH (21:42)
[2020-12-18 05:02] LABS: Basophils % 0.6 % (0.0-0.8); Eosinophils # 0.1 10*3/uL (0.0-0.87); Eosinophils % 2.1 % (0.00-10.9); Hematocrit 31.5 VOL% (42.0-52.0); Hemoglobin 9.7 GM/DL (14.0-18.0); Immature Granulocytes % 0.6 %; Immature Granulocytes Absolute 0.04 #; Lymphocytes # 1.2 10*3/uL (1.4-4.0); Lymphocytes % 17.2 % (21.2-54.2); Mean Corpuscular HGB Conc 30.8 GM/DL (32-36); Mean Platelet Volume 9.4 FL (9.6-12.0); Monocytes % 13.3 % (1.7-12.7); Neutrophils % 66.2 % (38.7-73.9); Platelet Count 158 T/CUMM (130-400); Red Blood Count 3.28 MC/CUMM (3.8-5.5); Red Cell Distribution Width 16.8 % (9.3-17.3); White Blood Count 6.8 T/CUMM (4-12)
[2020-12-18 05:35] LABS: Calcium 8.5 MG/DL (8.5-10.1); Osmolality,Calculated 276.5 MOS/KG (273-304); Potassium 4.2 MMOL/L (3.5-5.1)
[2020-12-18] MEDS: LEVOTHYROXINE 50 MCG TABLET PO SCH (06:00)
[2020-12-18] MEDS: ASPIRIN EC 81 MG TABLET PO SCH (09:00)
[2020-12-18] MEDS ORDERED: APIXABAN 5 MG TABLET PO SCH (09:00)
[2020-12-18] MEDS: FINASTERIDE 5 MG TABLET PO SCH (09:00)
[2020-12-18] MEDS: SOTALOL 80 MG TABLET PO SCH (09:00)
[2020-12-18] MEDS: ISOSORBIDE MONONITRATE 30 MG TABLET PO SCH (09:02)
[2020-12-18] MEDS: MAGNESIUM OXIDE 400 MG TABLET PO SCH (09:02)
[2020-12-18] MEDS: carvediloL 3.125 MG TABLET PO SCH (09:03)
[2020-12-18] MEDS: FERROUS SULFATE 325 MG TABLET PO SCH (09:03)
[2020-12-18] MEDS: GABAPENTIN 100 MG CAPSULE PO SCH (09:03)
[2020-12-18] MEDS: amLODIPine 2.5 MG TABLET PO SCH (09:03)
[2020-12-18] MEDS: MONTELUKAST 10 MG TABLET PO SCH (09:04)
[2020-12-18] MEDS: FUROSEMIDE 40 MG TABLET PO SCH (09:04)
[2020-12-18] MEDS: SPIRONOLACTONE 50 MG TABLET PO SCH (09:04)
[2020-12-18] MEDS: DOCUSATE SODIUM 100 MG CAPSULE PO SCH (09:04)
[2020-12-18] MEDS: DICYCLOMINE 20 MG TABLET PO SCH ×2 (09:05→12:22)
[2020-12-18] MEDS: POLYETHYLENE GLYCOL POWDER 17 GM PACK PO SCH (09:06)
[2020-12-18 16:03] VITALS: BP 112/71
== END 2020-12-18 16:11 | disposition home or self-care (01) | DRG 813 ==
LOC: N.ED 15:01 → SUATTDRO 21:51 → N.EDINP 21:51 → N.ICU 22:29 → N.TELES 12-13 13:51
PROVIDERS: ADMIT Surgery; ATTEND Internal Medicine

== ENCOUNTER 2020-12-22 10:14 | Inpatient (IN) ==
[2020-12-22] MEDS ORDERED: GLUCAGON 1 MG VIAL IM PRN (13:40)
[2020-12-22] MEDS ORDERED: ALBUTEROL 2.5 MG/3 ML NEB RESP TX PRN (13:40)
[2020-12-22] MEDS ORDERED: DEXTROSE 50% 25 GM/50 ML VIAL IV PRN (13:40)
[2020-12-22] MEDS ORDERED: DOCUSATE SODIUM 100 MG CAPSULE PO PRN (13:40)
[2020-12-22 14:07] LABS: Basophils % 0.2 % (0.0-0.8); Hematocrit 35.7 VOL% (42.0-52.0); Immature Granulocytes % 0.3 %; Immature Granulocytes Absolute 0.04 #; Lymphocytes # 0.6 10*3/uL (1.4-4.0); Lymphocytes % 4.6 % (21.2-54.2); Mean Corpuscular HGB Conc 30.8 GM/DL (32-36); Mean Corpuscular Volume 96.5 FL (87-102); Mean Platelet Volume 8.9 FL (9.6-12.0); Monocytes % 8.1 % (1.7-12.7); Neutrophils % 86.8 % (38.7-73.9); Platelet Count 176 T/CUMM (130-400); Red Cell Distribution Width 16.3 % (9.3-17.3); White Blood Count 12.6 T/CUMM (4-12)
[2020-12-22 14:21] LABS: INR 1.3
[2020-12-22 14:23] LABS: Albumin 3.5 G/DL (3.4-5.0); Bilirubin,Total 2.5 MG/DL (0.2-1.0); Calcium 8.7 MG/DL (8.5-10.1); Osmolality,Calculated 278.5 MOS/KG (273-304); Total Protein 6.7 G/DL (6.4-8.2)
[2020-12-22 14:29] LABS: Anisocytosis 2+; Band Neutrophils 26 % (0-10); Hypochromasia 1+; Lymphocytes 6 % (20-55); Macrocytosis 2+; Metamyelocytes 4 %; Microcytosis Slight; Platelet Estimate Adequate; Polychromasia 1+; Segmented Neutrophils 62 % (50-85); Total Cells Counted 100; Toxic Granulation 1+
[2020-12-22 14:30] LABS: Elliptocytes Few; Poikilocytosis Few
[2020-12-22] MEDS ORDERED: MORPHINE 4 MG/1 ML VIAL IV PRN (14:42)
[2020-12-22] MEDS: ONDANSETRON 4 MG/2 ML VIAL IV PRN (14:58)
[2020-12-22 15:06] LABS: Dohle Bodies Few
[2020-12-22] MEDS: CEFEPIME 1,000 MG in SODIUM CHLORIDE 0.9% 100 ML IV SCH ×2 (15:39→20:37)
[2020-12-22] MEDS: INSULIN REGULAR 100 UNIT/ML SUBCUT SCH ×2 (15:40→20:33)
[2020-12-22] MEDS ORDERED: NITROGLYCERIN SL 0.4 MG TABLET SL PRN (16:01)
[2020-12-22] MEDS ORDERED: BACLOFEN 10 MG TABLET PO PRN (16:01)
[2020-12-22] MEDS ORDERED: OXYMETAZOLINE 0.05% NASAL SPRAY 15 ML BOTTLE BOTH NARES PRN (16:01)
[2020-12-22] MEDS: DICYCLOMINE 20 MG TABLET PO SCH ×2 (16:45→20:31)
[2020-12-22] MEDS: FERROUS SULFATE 325 MG TABLET PO SCH (20:31)
[2020-12-22] MEDS: TAMSULOSIN 0.4 MG CAPSULE PO SCH (20:31)
[2020-12-22] MEDS: PANTOPRAZOLE 40 MG TABLET PO SCH (20:31)
[2020-12-22] MEDS: SOTALOL 80 MG TABLET PO SCH (20:31)
[2020-12-22] MEDS: GABAPENTIN 100 MG CAPSULE PO SCH (20:32)
[2020-12-22] MEDS: HYOSCYAMINE 0.125 MG TABLET SL PRN (21:01)
[2020-12-22] MEDS ORDERED: CHOLESTYRAMINE 4 GM PACK PO PRN (22:00)
[2020-12-23] MEDS: ONDANSETRON 4 MG/2 ML VIAL IV PRN ×4 (00:38→18:15)
[2020-12-23] MEDS: CEFEPIME 1,000 MG in SODIUM CHLORIDE 0.9% 100 ML IV SCH ×4 (02:30→20:30)
[2020-12-23 05:24] LABS: Basophils # 0.1 10*3/uL (0.0-0.2); Basophils % 0.4 % (0.0-0.8); Eosinophils # 0.1 10*3/uL (0.0-0.87); Eosinophils % 0.5 % (0.00-10.9); Hemoglobin 10.8 GM/DL (14.0-18.0); Immature Granulocytes % 0.4 %; Immature Granulocytes Absolute 0.05 #; Lymphocytes # 1.3 10*3/uL (1.4-4.0); Lymphocytes % 9.6 % (21.2-54.2); Mean Corpuscular HGB Conc 30.9 GM/DL (32-36); Mean Corpuscular Volume 95.6 FL (87-102); Mean Platelet Volume 9.7 FL (9.6-12.0); Monocytes % 7.7 % (1.7-12.7); Neutrophils % 81.4 % (38.7-73.9); Platelet Count 158 T/CUMM (130-400); Red Blood Count 3.66 MC/CUMM (3.8-5.5); Red Cell Distribution Width 16.4 % (9.3-17.3); White Blood Count 13.2 T/CUMM (4-12)
[2020-12-23] MEDS: LEVOTHYROXINE 50 MCG TABLET PO SCH (05:45)
[2020-12-23 05:48] LABS: Calcium 8.5 MG/DL (8.5-10.1); Osmolality,Calculated 275.8 MOS/KG (273-304); Potassium 3.8 MMOL/L (3.5-5.1)
[2020-12-23] MEDS: INSULIN REGULAR 100 UNIT/ML SUBCUT SCH ×4 (07:27→20:16)
[2020-12-23] MEDS: ASPIRIN EC 81 MG TABLET PO SCH (08:34)
[2020-12-23] MEDS: SOTALOL 80 MG TABLET PO SCH ×2 (08:34→20:15)
[2020-12-23] MEDS: FINASTERIDE 5 MG TABLET PO SCH (08:34)
[2020-12-23] MEDS: FERROUS SULFATE 325 MG TABLET PO SCH ×2 (08:35→20:15)
[2020-12-23] MEDS: TAMSULOSIN 0.4 MG CAPSULE PO SCH ×2 (08:35→20:15)
[2020-12-23] MEDS: MONTELUKAST 10 MG TABLET PO SCH (08:35)
[2020-12-23] MEDS: DICYCLOMINE 20 MG TABLET PO SCH ×4 (08:35→20:15)
[2020-12-23] MEDS: PANTOPRAZOLE 40 MG TABLET PO SCH ×2 (08:35→20:15)
[2020-12-23] MEDS: GABAPENTIN 100 MG CAPSULE PO SCH ×3 (08:35→20:16)
[2020-12-23] MEDS ORDERED: FUROSEMIDE 40 MG/4 ML VIAL IV ONE (08:47)
[2020-12-23] MEDS ORDERED: FUROSEMIDE 40 MG TABLET PO SCH (09:00)
[2020-12-23] MEDS ORDERED: FUROSEMIDE 40 MG/4 ML VIAL IV SCH (12:30)
[2020-12-23] MEDS: HYOSCYAMINE 0.125 MG TABLET SL PRN (20:15)
[2020-12-24] MEDS: ONDANSETRON 4 MG/2 ML VIAL IV PRN ×2 (02:49→10:51)
[2020-12-24] MEDS: CEFEPIME 1,000 MG in SODIUM CHLORIDE 0.9% 100 ML IV SCH ×4 (02:50→22:30)
[2020-12-24] MEDS: LEVOTHYROXINE 50 MCG TABLET PO SCH (05:45)
[2020-12-24 06:05] LABS: Basophils % 0.4 % (0.0-0.8); Calcium 8.2 MG/DL (8.5-10.1); Eosinophils # 0.1 10*3/uL (0.0-0.87); Eosinophils % 1.7 % (0.00-10.9); Hematocrit 31.1 VOL% (42.0-52.0); Hemoglobin 9.9 GM/DL (14.0-18.0); Immature Granulocytes % 0.5 %; Immature Granulocytes Absolute 0.04 #; Lymphocytes # 1.1 10*3/uL (1.4-4.0); Mean Corpuscular HGB Conc 31.8 GM/DL (32-36); Mean Corpuscular Volume 94.2 FL (87-102); Mean Platelet Volume 9.8 FL (9.6-12.0); Monocytes % 8.1 % (1.7-12.7); Neutrophils % 76.3 % (38.7-73.9); Osmolality,Calculated 279.4 MOS/KG (273-304); Platelet Count 136 T/CUMM (130-400); Potassium 3.6 MMOL/L (3.5-5.1); Red Cell Distribution Width 16.4 % (9.3-17.3); White Blood Count 8.4 T/CUMM (4-12)
[2020-12-24] MEDS: MONTELUKAST 10 MG TABLET PO SCH (10:14)
[2020-12-24] MEDS: FINASTERIDE 5 MG TABLET PO SCH (10:14)
[2020-12-24] MEDS: INSULIN REGULAR 100 UNIT/ML SUBCUT SCH ×4 (10:14→22:31)
[2020-12-24] MEDS: ASPIRIN EC 81 MG TABLET PO SCH (10:14)
[2020-12-24] MEDS: TAMSULOSIN 0.4 MG CAPSULE PO SCH ×2 (10:15→22:29)
[2020-12-24] MEDS: PANTOPRAZOLE 40 MG TABLET PO SCH ×2 (10:15→22:29)
[2020-12-24] MEDS: FERROUS SULFATE 325 MG TABLET PO SCH ×2 (10:15→22:29)
[2020-12-24] MEDS: SOTALOL 80 MG TABLET PO SCH ×2 (10:15→22:28)
[2020-12-24] MEDS: DICYCLOMINE 20 MG TABLET PO SCH ×4 (10:15→22:29)
[2020-12-24] MEDS: GABAPENTIN 100 MG CAPSULE PO SCH ×3 (10:16→22:29)
[2020-12-24] MEDS: FUROSEMIDE 40 MG/4 ML VIAL IV SCH (13:29)
[2020-12-25] MEDS: CEFEPIME 1,000 MG in SODIUM CHLORIDE 0.9% 100 ML IV SCH ×4 (04:40→21:21)
[2020-12-25 05:03] LABS: Basophils % 0.5 % (0.0-0.8); Eosinophils # 0.1 10*3/uL (0.0-0.87); Eosinophils % 2.2 % (0.00-10.9); Hematocrit 32.8 VOL% (42.0-52.0); Hemoglobin 10.4 GM/DL (14.0-18.0); Immature Granulocytes % 0.5 %; Immature Granulocytes Absolute 0.03 #; Lymphocytes # 1.2 10*3/uL (1.4-4.0); Lymphocytes % 18.5 % (21.2-54.2); Mean Corpuscular HGB Conc 31.7 GM/DL (32-36); Mean Corpuscular Volume 94.3 FL (87-102); Mean Platelet Volume 9.3 FL (9.6-12.0); Monocytes % 8.2 % (1.7-12.7); Neutrophils % 70.1 % (38.7-73.9); Platelet Count 133 T/CUMM (130-400); Red Blood Count 3.48 MC/CUMM (3.8-5.5); Red Cell Distribution Width 16.4 % (9.3-17.3); White Blood Count 6.4 T/CUMM (4-12)
[2020-12-25 05:25] LABS: Albumin 2.9 G/DL (3.4-5.0); Bilirubin,Total 1.7 MG/DL (0.2-1.0); Calcium 8.5 MG/DL (8.5-10.1); Osmolality,Calculated 278.5 MOS/KG (273-304); Potassium 3.8 MMOL/L (3.5-5.1); Total Protein 6.4 G/DL (6.4-8.2)
[2020-12-25] MEDS: LEVOTHYROXINE 50 MCG TABLET PO SCH (06:46)
[2020-12-25] MEDS: SOTALOL 80 MG TABLET PO SCH ×2 (10:00→21:20)
[2020-12-25] MEDS: TAMSULOSIN 0.4 MG CAPSULE PO SCH ×2 (10:01→21:20)
[2020-12-25] MEDS: PANTOPRAZOLE 40 MG TABLET PO SCH ×2 (10:01→21:20)
[2020-12-25] MEDS: DICYCLOMINE 20 MG TABLET PO SCH ×4 (10:01→21:20)
[2020-12-25] MEDS: MONTELUKAST 10 MG TABLET PO SCH (10:01)
[2020-12-25] MEDS: FINASTERIDE 5 MG TABLET PO SCH (10:01)
[2020-12-25] MEDS: FERROUS SULFATE 325 MG TABLET PO SCH ×2 (10:01→21:20)
[2020-12-25] MEDS: ASPIRIN EC 81 MG TABLET PO SCH (10:01)
[2020-12-25] MEDS: FUROSEMIDE 40 MG/4 ML VIAL IV SCH (10:02)
[2020-12-25] MEDS: INSULIN REGULAR 100 UNIT/ML SUBCUT SCH ×4 (10:03→21:29)
[2020-12-25] MEDS: GABAPENTIN 100 MG CAPSULE PO SCH ×3 (10:04→21:20)
[2020-12-25] MEDS: DOBUTamine 500 MG/250 ML PREMIX IV SCH (12:41)
[2020-12-25] MEDS: HYOSCYAMINE 0.125 MG TABLET SL PRN (15:51)
[2020-12-26] MEDS: DOBUTamine 500 MG/250 ML PREMIX IV SCH (03:10)
[2020-12-26] MEDS: CEFEPIME 1,000 MG in SODIUM CHLORIDE 0.9% 100 ML IV SCH ×3 (03:12→15:07)
[2020-12-26 04:51] LABS: Basophils # 0.1 10*3/uL (0.0-0.2); Basophils % 0.9 % (0.0-0.8); Eosinophils # 0.2 10*3/uL (0.0-0.87); Eosinophils % 3.5 % (0.00-10.9); Hematocrit 35.8 VOL% (42.0-52.0); Immature Granulocytes Absolute 0.06 #; Lymphocytes # 1.3 10*3/uL (1.4-4.0); Lymphocytes % 21.8 % (21.2-54.2); Mean Corpuscular HGB Conc 30.7 GM/DL (32-36); Mean Corpuscular Volume 95.5 FL (87-102); Mean Platelet Volume 9.3 FL (9.6-12.0); Monocytes % 11.1 % (1.7-12.7); Neutrophils % 61.7 % (38.7-73.9); Platelet Count 167 T/CUMM (130-400); Red Blood Count 3.75 MC/CUMM (3.8-5.5); Red Cell Distribution Width 16.2 % (9.3-17.3); White Blood Count 5.7 T/CUMM (4-12)
[2020-12-26 05:13] LABS: Calcium 8.8 MG/DL (8.5-10.1); Hypochromasia Slight; Microcytosis Slight; Osmolality,Calculated 278.4 MOS/KG (273-304); Platelet Estimate Adequate; Potassium 3.8 MMOL/L (3.5-5.1)
[2020-12-26 05:14] LABS: Calcium 8.5 MG/DL (8.5-10.1); Osmolality,Calculated 280.3 MOS/KG (273-304); Potassium 3.9 MMOL/L (3.5-5.1)
[2020-12-26] MEDS: LEVOTHYROXINE 50 MCG TABLET PO SCH (06:41)
[2020-12-26] MEDS: INSULIN REGULAR 100 UNIT/ML SUBCUT SCH ×3 (07:57→15:45)
[2020-12-26] MEDS: ASPIRIN EC 81 MG TABLET PO SCH (08:27)
[2020-12-26] MEDS: DICYCLOMINE 20 MG TABLET PO SCH ×3 (08:27→16:40)
[2020-12-26] MEDS: FINASTERIDE 5 MG TABLET PO SCH (08:27)
[2020-12-26] MEDS: GABAPENTIN 100 MG CAPSULE PO SCH ×2 (08:27→15:07)
[2020-12-26] MEDS: PANTOPRAZOLE 40 MG TABLET PO SCH (08:27)
[2020-12-26] MEDS: FERROUS SULFATE 325 MG TABLET PO SCH (08:27)
[2020-12-26] MEDS: SOTALOL 80 MG TABLET PO SCH (08:27)
[2020-12-26] MEDS: MONTELUKAST 10 MG TABLET PO SCH (08:27)
[2020-12-26] MEDS: TAMSULOSIN 0.4 MG CAPSULE PO SCH (08:28)
[2020-12-26] MEDS: FUROSEMIDE 40 MG/4 ML VIAL IV SCH (08:28)
[2020-12-26 11:36] VITALS: BP 90/72
== END 2020-12-26 16:43 | disposition home health service (06) | DRG 193 ==
LOC: SUATTDRO 12:54 → N.TELEN 12:54
PROVIDERS: ADMIT Internal Medicine; ATTEND Internal Medicine

== ENCOUNTER 2021-09-30 11:29 | Inpatient (IN) ==
[2021-09-30] MEDS ORDERED: guaiFENesin/DM ER 600-30 MG TABLET PO PRN (11:57)
[2021-09-30] MEDS ORDERED: ACETAMINOPHEN 325 MG TABLET PO PRN (11:57)
[2021-09-30] MEDS ORDERED: MAGNESIUM SULF RIDER 4 GM/100 ML PREMIX IV PRN (11:57)
[2021-09-30] MEDS ORDERED: MAGNESIUM SULF RIDER 2 GM/50 ML PREMIX IV PRN (11:57)
[2021-09-30] MEDS ORDERED: MORPHINE 2 MG/1 ML SYRINGE IV PRN (11:57)
[2021-09-30] MEDS ORDERED: traZODone 50 MG TABLET PO PRN (11:57)
[2021-09-30] MEDS ORDERED: diphenhydrAMINE CAP 25 MG CAPSULE PO PRN (11:57)
[2021-09-30] MEDS ORDERED: ALUMINUM/MAGNES/SIMETH MAX STR 30 ML UDCUP PO PRN (11:57)
[2021-09-30] MEDS ORDERED: DOCUSATE SODIUM 100 MG CAPSULE PO PRN (11:57)
[2021-09-30] MEDS ORDERED: POTASSIUM CHLORIDE 20 MEQ TABLET PO PRN (11:57)
[2021-09-30 13:22] LABS: Basophils % 0.5 % (0.0-0.8); Eosinophils # 0.1 10*3/uL (0.0-0.87); Eosinophils % 1.7 % (0.00-10.9); Hematocrit 45.9 VOL% (42.0-52.0); Hemoglobin 14.4 GM/DL (14.0-18.0); Immature Granulocytes % 0.6 %; Immature Granulocytes Absolute 0.04 #; Lymphocytes # 1.1 10*3/uL (1.4-4.0); Lymphocytes % 17.3 % (21.2-54.2); Mean Corpuscular HGB Conc 31.4 GM/DL (32-36); Mean Corpuscular Volume 101.8 FL (87-102); Mean Platelet Volume 9.3 FL (9.6-12.0); Neutrophils % 69.9 % (38.7-73.9); Platelet Count 142 T/CUMM (130-400); Red Blood Count 4.51 MC/CUMM (3.8-5.5); Red Cell Distribution Width 14.1 % (9.3-17.3); White Blood Count 6.5 T/CUMM (4-12)
[2021-09-30 13:37] LABS: Albumin 3.8 G/DL (3.4-5.0); Bilirubin,Total 1.9 MG/DL (0.20-1.00); Calcium 8.9 MG/DL (8.5-10.1); Osmolality,Calculated 282.3 MOS/KG (273-304); Potassium 4.7 MMOL/L (3.5-5.1); Total Protein 7.5 G/DL (6.4-8.2)
[2021-09-30] MEDS: DOBUTamine 500 MG/250 ML PREMIX IV SCH (13:46)
[2021-09-30] MEDS ORDERED: NITROGLYCERIN SL 0.4 MG TABLET SL PRN (15:31)
[2021-09-30] MEDS ORDERED: oxyCODONE/ACETAMINOPHEN 5-325 MG TABLET PO PRN (16:02)
[2021-09-30] MEDS: RIVAROXABAN 10 MG TABLET PO SCH (17:31)
[2021-09-30] MEDS: ALBUTEROL 2.5 MG/3 ML NEB RESP TX SCH ×2 (17:44→23:10)
[2021-09-30] MEDS: ONDANSETRON 4 MG/2 ML VIAL IV PRN ×2 (18:50→22:03)
[2021-09-30] MEDS: SOTALOL 80 MG TABLET PO SCH (22:02)
[2021-09-30] MEDS: CALCIUM (CARBONATE)/VITAMIN D 600 MG-400 UNIT TABLET PO SCH (22:02)
[2021-09-30] MEDS: TAMSULOSIN 0.4 MG CAPSULE PO SCH (22:02)
[2021-09-30] MEDS: FAMOTIDINE 20 MG TABLET PO SCH (22:02)
[2021-09-30] MEDS: MAGNESIUM OXIDE 400 MG TABLET PO SCH (22:02)
[2021-09-30] MEDS: MONTELUKAST 10 MG TABLET PO SCH (22:02)
[2021-09-30] MEDS: FERROUS SULFATE 325 MG TABLET PO SCH (22:03)
[2021-09-30] MEDS: PANTOPRAZOLE 40 MG TABLET PO SCH (22:03)
[2021-10-01] MEDS: ALBUTEROL 2.5 MG/3 ML NEB RESP TX SCH ×4 (01:10→19:46)
[2021-10-01] MEDS: DOBUTamine 500 MG/250 ML PREMIX IV SCH ×2 (05:02→20:33)
[2021-10-01] MEDS: ONDANSETRON 4 MG/2 ML VIAL IV PRN ×2 (05:08→17:34)
[2021-10-01 05:55] LABS: Basophils % 0.6 % (0.0-0.8); Eosinophils # 0.1 10*3/uL (0.0-0.87); Eosinophils % 1.6 % (0.00-10.9); Hematocrit 45.7 VOL% (42.0-52.0); Hemoglobin 14.4 GM/DL (14.0-18.0); Immature Granulocytes % 0.4 %; Immature Granulocytes Absolute 0.03 #; Lymphocytes # 1.3 10*3/uL (1.4-4.0); Lymphocytes % 19.2 % (21.2-54.2); Mean Corpuscular HGB Conc 31.5 GM/DL (32-36); Mean Corpuscular Volume 99.6 FL (87-102); Mean Platelet Volume 8.9 FL (9.6-12.0); Monocytes % 11.8 % (1.7-12.7); Neutrophils % 66.4 % (38.7-73.9); Platelet Count 123 T/CUMM (130-400); Red Blood Count 4.59 MC/CUMM (3.8-5.5); Red Cell Distribution Width 14.1 % (9.3-17.3); White Blood Count 6.8 T/CUMM (4-12)
[2021-10-01 06:13] LABS: Albumin 3.5 G/DL (3.4-5.0); Bilirubin,Total 2.1 MG/DL (0.20-1.00); Calcium 9.2 MG/DL (8.5-10.1); Osmolality,Calculated 277.5 MOS/KG (273-304); Potassium 4.5 MMOL/L (3.5-5.1)
[2021-10-01] MEDS ORDERED: PROMETHAZINE INJ 25 MG in SODIUM CHLORIDE 0.9% 50 ML IV PRN (08:22)
[2021-10-01] MEDS ORDERED: PROMETHAZINE 25 MG/1 ML VIAL IM PRN (08:27)
[2021-10-01] MEDS ORDERED: PANTOPRAZOLE 40 MG TABLET PO SCH (09:00)
[2021-10-01] MEDS: PANTOPRAZOLE 40 MG TABLET PO SCH ×2 (09:01→20:33)
[2021-10-01] MEDS: FAMOTIDINE 20 MG TABLET PO SCH ×2 (09:01→20:32)
[2021-10-01] MEDS: MAGNESIUM OXIDE 400 MG TABLET PO SCH ×2 (09:59→20:31)
[2021-10-01] MEDS: FERROUS SULFATE 325 MG TABLET PO SCH ×2 (09:59→20:32)
[2021-10-01] MEDS: ASPIRIN EC 81 MG TABLET PO SCH (09:59)
[2021-10-01] MEDS: CALCIUM (CARBONATE)/VITAMIN D 600 MG-400 UNIT TABLET PO SCH ×2 (09:59→20:31)
[2021-10-01] MEDS: TAMSULOSIN 0.4 MG CAPSULE PO SCH ×2 (10:00→20:31)
[2021-10-01] MEDS: SPIRONOLACTONE 25 MG TABLET PO SCH (10:00)
[2021-10-01] MEDS: DOCUSATE SODIUM 100 MG/10 ML UDCUP PO SCH (10:00)
[2021-10-01] MEDS: ISOSORBIDE MONONITRATE 30 MG TABLET PO SCH (10:00)
[2021-10-01] MEDS: CLOPIDOGREL 75 MG TABLET PO SCH (10:00)
[2021-10-01] MEDS: LEVOTHYROXINE 50 MCG TABLET PO SCH (10:00)
[2021-10-01] MEDS: SOTALOL 80 MG TABLET PO SCH ×2 (10:00→20:32)
[2021-10-01] MEDS: PROMETHAZINE 25 MG TABLET PO PRN ×2 (15:23→21:33)
[2021-10-01] MEDS: RIVAROXABAN 10 MG TABLET PO SCH (17:31)
[2021-10-01] MEDS: MONTELUKAST 10 MG TABLET PO SCH (20:32)
[2021-10-02] MEDS: ALBUTEROL 2.5 MG/3 ML NEB RESP TX SCH ×4 (01:15→20:10)
[2021-10-02 07:58] LABS: Albumin 3.1 G/DL (3.4-5.0); Bilirubin,Total 1.8 MG/DL (0.20-1.00); Calcium 8.6 MG/DL (8.5-10.1); Osmolality,Calculated 280.3 MOS/KG (273-304); Potassium 4.5 MMOL/L (3.5-5.1); Total Protein 6.4 G/DL (6.4-8.2)
[2021-10-02] MEDS: ISOSORBIDE MONONITRATE 30 MG TABLET PO SCH (09:47)
[2021-10-02] MEDS: CALCIUM (CARBONATE)/VITAMIN D 600 MG-400 UNIT TABLET PO SCH ×2 (09:48→20:51)
[2021-10-02] MEDS: ASPIRIN EC 81 MG TABLET PO SCH (09:48)
[2021-10-02] MEDS: CLOPIDOGREL 75 MG TABLET PO SCH (09:48)
[2021-10-02] MEDS: FAMOTIDINE 20 MG TABLET PO SCH ×2 (09:48→20:51)
[2021-10-02] MEDS: TAMSULOSIN 0.4 MG CAPSULE PO SCH ×2 (09:48→20:51)
[2021-10-02] MEDS: FUROSEMIDE 40 MG TABLET PO SCH (09:49)
[2021-10-02] MEDS: PANTOPRAZOLE 40 MG TABLET PO SCH ×2 (09:49→20:52)
[2021-10-02] MEDS: SOTALOL 80 MG TABLET PO SCH ×2 (09:49→20:51)
[2021-10-02] MEDS: MAGNESIUM OXIDE 400 MG TABLET PO SCH ×2 (09:49→20:51)
[2021-10-02] MEDS: LEVOTHYROXINE 50 MCG TABLET PO SCH (09:49)
[2021-10-02] MEDS: SPIRONOLACTONE 25 MG TABLET PO SCH (09:49)
[2021-10-02] MEDS: FERROUS SULFATE 325 MG TABLET PO SCH ×2 (09:49→20:52)
[2021-10-02] MEDS: DOCUSATE SODIUM 100 MG/10 ML UDCUP PO SCH (09:52)
[2021-10-02] MEDS: DOBUTamine 500 MG/250 ML PREMIX IV SCH (15:04)
[2021-10-02] MEDS: RIVAROXABAN 10 MG TABLET PO SCH (17:01)
[2021-10-02] MEDS: MONTELUKAST 10 MG TABLET PO SCH (20:51)
[2021-10-02] MEDS: PROMETHAZINE 25 MG TABLET PO PRN (21:02)
[2021-10-03] MEDS: ALBUTEROL 2.5 MG/3 ML NEB RESP TX SCH ×4 (00:52→19:29)
[2021-10-03 07:59] LABS: Albumin 3.1 G/DL (3.4-5.0); Bilirubin,Total 1.8 MG/DL (0.20-1.00); Calcium 9.1 MG/DL (8.5-10.1); Osmolality,Calculated 282.3 MOS/KG (273-304); Total Protein 6.5 G/DL (6.4-8.2)
[2021-10-03] MEDS: ISOSORBIDE MONONITRATE 30 MG TABLET PO SCH (09:44)
[2021-10-03] MEDS: PANTOPRAZOLE 40 MG TABLET PO SCH ×2 (09:44→20:57)
[2021-10-03] MEDS: SPIRONOLACTONE 25 MG TABLET PO SCH (09:45)
[2021-10-03] MEDS: CLOPIDOGREL 75 MG TABLET PO SCH (09:45)
[2021-10-03] MEDS: FUROSEMIDE 40 MG TABLET PO SCH (09:45)
[2021-10-03] MEDS: ASPIRIN EC 81 MG TABLET PO SCH (09:45)
[2021-10-03] MEDS: TAMSULOSIN 0.4 MG CAPSULE PO SCH ×2 (09:45→20:58)
[2021-10-03] MEDS: SOTALOL 80 MG TABLET PO SCH ×2 (09:45→20:57)
[2021-10-03] MEDS: LEVOTHYROXINE 50 MCG TABLET PO SCH (09:45)
[2021-10-03] MEDS: CALCIUM (CARBONATE)/VITAMIN D 600 MG-400 UNIT TABLET PO SCH ×2 (09:45→20:57)
[2021-10-03] MEDS: FAMOTIDINE 20 MG TABLET PO SCH ×2 (09:45→20:58)
[2021-10-03] MEDS: MAGNESIUM OXIDE 400 MG TABLET PO SCH ×2 (09:45→20:58)
[2021-10-03] MEDS: FERROUS SULFATE 325 MG TABLET PO SCH ×2 (09:45→20:57)
[2021-10-03] MEDS: DOCUSATE SODIUM 100 MG/10 ML UDCUP PO SCH (09:54)
[2021-10-03] MEDS: ONDANSETRON 4 MG/2 ML VIAL IV PRN (14:58)
[2021-10-03] MEDS: DOBUTamine 500 MG/250 ML PREMIX IV SCH ×2 (15:25→18:22)
[2021-10-03] MEDS: RIVAROXABAN 10 MG TABLET PO SCH (16:05)
[2021-10-03] MEDS: PROMETHAZINE 25 MG TABLET PO PRN ×2 (16:05→23:06)
[2021-10-03] MEDS: MONTELUKAST 10 MG TABLET PO SCH (20:57)
[2021-10-04] MEDS: ALBUTEROL 2.5 MG/3 ML NEB RESP TX SCH ×2 (00:15→07:10)
[2021-10-04 06:27] LABS: Basophils % 0.5 % (0.0-0.8); Eosinophils # 0.2 10*3/uL (0.0-0.87); Eosinophils % 2.8 % (0.00-10.9); Hematocrit 42.8 VOL% (42.0-52.0); Hemoglobin 13.9 GM/DL (14.0-18.0); Immature Granulocytes % 0.5 %; Immature Granulocytes Absolute 0.04 #; Lymphocytes # 1.5 10*3/uL (1.4-4.0); Lymphocytes % 18.6 % (21.2-54.2); Mean Corpuscular HGB Conc 32.5 GM/DL (32-36); Mean Corpuscular Volume 98.4 FL (87-102); Mean Platelet Volume 9.2 FL (9.6-12.0); Monocytes % 11.4 % (1.7-12.7); Neutrophils % 66.2 % (38.7-73.9); Platelet Count 141 T/CUMM (130-400); Red Blood Count 4.35 MC/CUMM (3.8-5.5); Red Cell Distribution Width 14.1 % (9.3-17.3); White Blood Count 7.8 T/CUMM (4-12)
[2021-10-04 06:44] LABS: Albumin 3.3 G/DL (3.4-5.0); Calcium 8.9 MG/DL (8.5-10.1); Osmolality,Calculated 277.7 MOS/KG (273-304); Potassium 4.2 MMOL/L (3.5-5.1); Total Protein 6.9 G/DL (6.4-8.2)
[2021-10-04 08:31] VITALS: BP 133/79
[2021-10-04] MEDS: ISOSORBIDE MONONITRATE 30 MG TABLET PO SCH (09:29)
[2021-10-04] MEDS: ASPIRIN EC 81 MG TABLET PO SCH (09:29)
[2021-10-04] MEDS: TAMSULOSIN 0.4 MG CAPSULE PO SCH (09:29)
[2021-10-04] MEDS: MAGNESIUM OXIDE 400 MG TABLET PO SCH (09:30)
[2021-10-04] MEDS: FUROSEMIDE 40 MG TABLET PO SCH (09:30)
[2021-10-04] MEDS: CALCIUM (CARBONATE)/VITAMIN D 600 MG-400 UNIT TABLET PO SCH (09:30)
[2021-10-04] MEDS: SPIRONOLACTONE 25 MG TABLET PO SCH (09:30)
[2021-10-04] MEDS: PANTOPRAZOLE 40 MG TABLET PO SCH (09:30)
[2021-10-04] MEDS: CLOPIDOGREL 75 MG TABLET PO SCH (09:31)
[2021-10-04] MEDS: FERROUS SULFATE 325 MG TABLET PO SCH (09:31)
[2021-10-04] MEDS: SOTALOL 80 MG TABLET PO SCH (09:31)
[2021-10-04] MEDS: FAMOTIDINE 20 MG TABLET PO SCH (09:31)
[2021-10-04] MEDS: LEVOTHYROXINE 50 MCG TABLET PO SCH (09:32)
[2021-10-04] MEDS: DOCUSATE SODIUM 100 MG/10 ML UDCUP PO SCH (09:33)
== END 2021-10-04 10:30 | disposition home or self-care (01) | DRG 291 ==
LOC: N.TELEN
PROVIDERS: ADMIT Internal Medicine Interventional Cardiology; ATTEND Internal Medicine Interventional Cardiology

== ENCOUNTER 2022-06-09 16:45 | Inpatient (IN) ==
[2022-06-09 18:16] LABS: Albumin 3.5 G/DL (3.4-5.0); Bilirubin,Total 3.2 MG/DL (0.20-1.00); Calcium 8.7 MG/DL (8.5-10.1); Osmolality,Calculated 284.7 MOS/KG (273-304); Potassium 3.7 MMOL/L (3.5-5.1); Total Protein 6.7 G/DL (6.4-8.2)
[2022-06-09 18:16] LABS: Basophils % 0.5 % (0.0-0.8); Eosinophils % 0.4 % (0.00-10.9); Hematocrit 38.4 VOL% (42.0-52.0); Lymphocytes # 1.1 10*3/uL (1.4-4.0); Lymphocytes % 19.3 % (21.2-54.2); Mean Corpuscular HGB Conc 31.3 GM/DL (32-36); Mean Corpuscular Volume 90.8 FL (87-102); Mean Platelet Volume 10.5 FL (9.6-12.0); Monocytes # 0.7 10*3/uL (0.11-0.8); Monocytes % 12.3 % (1.7-12.7); Neutrophils % 67.5 % (38.7-73.9); Platelet Count 152 T/CUMM (130-400); Red Blood Count 4.23 MC/CUMM (3.8-5.5); Red Cell Distribution Width 15.7 % (9.3-17.3); White Blood Count 5.6 T/CUMM (4-12)
[2022-06-09] MEDS ORDERED: NITROGLYCERIN 2% OINT 1 INCH/GM PACK TOP STA (18:50)
[2022-06-09] MEDS ORDERED: ONDANSETRON 4 MG/2 ML VIAL IV STA (18:50)
[2022-06-09] MEDS ORDERED: ASPIRIN 325 MG TABLET PO STA (18:50)
[2022-06-09] MEDS ORDERED: MORPHINE 2 MG/1 ML SYRINGE IV STA (18:50)
[2022-06-09] MEDS ORDERED: NON-FORMULARY MEDICATION (Oxycodone-Acetaminophen 10-325 mg Tablet) PO PRN (19:38)
[2022-06-09] MEDS ORDERED: NITROGLYCERIN 2% OINT 1 INCH/GM PACK TOP PRN (19:43)
[2022-06-09] MEDS ORDERED: carvediloL 3.125 MG TABLET PO SCH (21:00)
[2022-06-09] MEDS ORDERED: SOTALOL 80 MG TABLET PO SCH (21:00)
[2022-06-09] MEDS: BACLOFEN 10 MG TABLET PO SCH (23:34)
[2022-06-09] MEDS: PANTOPRAZOLE 40 MG TABLET PO SCH (23:34)
[2022-06-09] MEDS: RIVAROXABAN 10 MG TABLET PO SCH (23:34)
[2022-06-10 01:54] LABS: Basophils % 0.4 % (0.0-0.8); Eosinophils # 0.1 10*3/uL (0.0-0.87); Eosinophils % 0.9 % (0.00-10.9); Hematocrit 34.5 VOL% (42.0-52.0); Hemoglobin 10.9 GM/DL (14.0-18.0); Immature Granulocytes % 0.4 %; Immature Granulocytes Absolute 0.02 #; Lymphocytes # 1.2 10*3/uL (1.4-4.0); Lymphocytes % 21.5 % (21.2-54.2); Mean Corpuscular HGB Conc 31.6 GM/DL (32-36); Mean Corpuscular Volume 89.6 FL (87-102); Mean Platelet Volume 10.7 FL (9.6-12.0); Monocytes # 0.8 10*3/uL (0.11-0.8); Monocytes % 15.5 % (1.7-12.7); Neutrophils % 61.3 % (38.7-73.9); Platelet Count 146 T/CUMM (130-400); Red Blood Count 3.85 MC/CUMM (3.8-5.5); Red Cell Distribution Width 15.4 % (9.3-17.3); White Blood Count 5.4 T/CUMM (4-12)
[2022-06-10 02:09] LABS: Albumin 3.2 G/DL (3.4-5.0); Calcium 8.6 MG/DL (8.5-10.1); Osmolality,Calculated 284.7 MOS/KG (273-304); Potassium 4.2 MMOL/L (3.5-5.1); Total Protein 5.9 G/DL (6.4-8.2)
[2022-06-10] MEDS: TAMSULOSIN 0.4 MG CAPSULE PO SCH (08:34)
[2022-06-10] MEDS: SPIRONOLACTONE 25 MG TABLET PO SCH (08:34)
[2022-06-10] MEDS: ASPIRIN CHEW 81 MG TABLET PO SCH (08:34)
[2022-06-10] MEDS: CLOPIDOGREL 75 MG TABLET PO SCH (08:34)
[2022-06-10] MEDS: BACLOFEN 10 MG TABLET PO SCH ×3 (08:34→22:00)
[2022-06-10] MEDS: ISOSORBIDE MONONITRATE 30 MG TABLET PO SCH (08:34)
[2022-06-10] MEDS: PANTOPRAZOLE 40 MG TABLET PO SCH ×2 (08:35→22:00)
[2022-06-10] MEDS ORDERED: PANTOPRAZOLE 40 MG TABLET PO SCH (09:00)
[2022-06-10] MEDS ORDERED: SOTALOL 80 MG TABLET PO SCH (09:00)
[2022-06-10] MEDS: FUROSEMIDE 40 MG/4 ML VIAL IV SCH ×2 (09:24→15:32)
[2022-06-10] MEDS: DOBUTamine 500 MG/250 ML PREMIX IV SCH (09:24)
[2022-06-10] MEDS: ONDANSETRON 4 MG/2 ML VIAL IV PRN (13:09)
[2022-06-10] MEDS: RIVAROXABAN 10 MG TABLET PO SCH (17:39)
[2022-06-10] MEDS: DOCUSATE SODIUM 100 MG CAPSULE PO SCH (22:00)
[2022-06-10] MEDS: MAGNESIUM OXIDE 400 MG TABLET PO SCH (22:00)
[2022-06-11] MEDS ORDERED: diphenhydrAMINE CAP 25 MG CAPSULE PO PRN (00:25)
[2022-06-11] MEDS: MELATONIN 3 MG TABLET PO PRN ×2 (00:45→23:07)
[2022-06-11 04:55] LABS: Basophils % 0.6 % (0.0-0.8); Eosinophils # 0.2 10*3/uL (0.0-0.87); Eosinophils % 3.3 % (0.00-10.9); Hematocrit 34.7 VOL% (42.0-52.0); Hemoglobin 10.9 GM/DL (14.0-18.0); Immature Granulocytes % 0.6 %; Immature Granulocytes Absolute 0.03 #; Lymphocytes # 1.1 10*3/uL (1.4-4.0); Lymphocytes % 22.9 % (21.2-54.2); Mean Corpuscular HGB Conc 31.4 GM/DL (32-36); Mean Corpuscular Volume 88.7 FL (87-102); Mean Platelet Volume 10.1 FL (9.6-12.0); Monocytes # 0.6 10*3/uL (0.11-0.8); Monocytes % 12.6 % (1.7-12.7); Platelet Count 130 T/CUMM (130-400); Red Blood Count 3.91 MC/CUMM (3.8-5.5); Red Cell Distribution Width 15.5 % (9.3-17.3); White Blood Count 4.9 T/CUMM (4-12)
[2022-06-11 05:27] LABS: Albumin 3.3 G/DL (3.4-5.0); Bilirubin,Total 2.3 MG/DL (0.20-1.00); Calcium 8.5 MG/DL (8.5-10.1); Osmolality,Calculated 282.4 MOS/KG (273-304); Potassium 3.4 MMOL/L (3.5-5.1)
[2022-06-11] MEDS ORDERED: POTASSIUM CHLORIDE 20 MEQ TABLET PO ONE (07:31)
[2022-06-11] MEDS: SOTALOL 80 MG TABLET PO SCH (08:07)
[2022-06-11] MEDS: ASPIRIN CHEW 81 MG TABLET PO SCH (08:07)
[2022-06-11] MEDS: MAGNESIUM OXIDE 400 MG TABLET PO SCH ×2 (08:08→20:41)
[2022-06-11] MEDS: ISOSORBIDE MONONITRATE 30 MG TABLET PO SCH (08:08)
[2022-06-11] MEDS: CLOPIDOGREL 75 MG TABLET PO SCH (08:09)
[2022-06-11] MEDS: TAMSULOSIN 0.4 MG CAPSULE PO SCH (08:11)
[2022-06-11] MEDS: FUROSEMIDE 40 MG/4 ML VIAL IV SCH ×2 (08:11→16:04)
[2022-06-11] MEDS: DOCUSATE SODIUM 100 MG CAPSULE PO SCH ×2 (08:11→20:41)
[2022-06-11] MEDS: BACLOFEN 10 MG TABLET PO SCH ×3 (08:12→20:41)
[2022-06-11] MEDS: PANTOPRAZOLE 40 MG TABLET PO SCH ×2 (08:12→20:41)
[2022-06-11] MEDS: SPIRONOLACTONE 25 MG TABLET PO SCH (08:12)
[2022-06-11] MEDS: FERROUS SULFATE 325 MG TABLET PO SCH (08:12)
[2022-06-11] MEDS: oxyCODONE/ACETAMINOPHEN 5-325 MG TABLET PO PRN ×2 (08:16→20:41)
[2022-06-11] MEDS: LEVOTHYROXINE 50 MCG TABLET PO SCH (09:47)
[2022-06-11] MEDS: DOBUTamine 500 MG/250 ML PREMIX IV SCH (09:47)
[2022-06-11] MEDS: ONDANSETRON 4 MG/2 ML VIAL IV PRN ×2 (09:54→14:15)
[2022-06-11] MEDS: RIVAROXABAN 10 MG TABLET PO SCH (16:01)
[2022-06-12 05:15] LABS: Albumin 3.5 G/DL (3.4-5.0); Bilirubin,Total 2.4 MG/DL (0.20-1.00); Calcium 8.6 MG/DL (8.5-10.1); Osmolality,Calculated 278.5 MOS/KG (273-304); Potassium 3.7 MMOL/L (3.5-5.1); Total Protein 6.5 G/DL (6.4-8.2)
[2022-06-12] MEDS: DOBUTamine 500 MG/250 ML PREMIX IV SCH ×2 (06:27→23:39)
[2022-06-12] MEDS: FUROSEMIDE 40 MG/4 ML VIAL IV SCH ×2 (08:53→16:56)
[2022-06-12] MEDS: ISOSORBIDE MONONITRATE 30 MG TABLET PO SCH (08:57)
[2022-06-12] MEDS: CLOPIDOGREL 75 MG TABLET PO SCH (08:57)
[2022-06-12] MEDS: PANTOPRAZOLE 40 MG VIAL IV SCH ×2 (08:57→21:40)
[2022-06-12] MEDS: CLORAZEPATE 3.75 MG TABLET PO SCH ×3 (08:57→21:02)
[2022-06-12] MEDS: BACLOFEN 10 MG TABLET PO SCH ×3 (08:57→21:03)
[2022-06-12] MEDS: SPIRONOLACTONE 25 MG TABLET PO SCH (08:58)
[2022-06-12] MEDS: LEVOTHYROXINE 50 MCG TABLET PO SCH (08:58)
[2022-06-12] MEDS: DOCUSATE SODIUM 100 MG CAPSULE PO SCH ×2 (08:58→21:03)
[2022-06-12] MEDS: TAMSULOSIN 0.4 MG CAPSULE PO SCH (08:58)
[2022-06-12] MEDS: ASPIRIN CHEW 81 MG TABLET PO SCH (08:58)
[2022-06-12] MEDS: MAGNESIUM OXIDE 400 MG TABLET PO SCH ×2 (08:58→21:03)
[2022-06-12] MEDS: FERROUS SULFATE 325 MG TABLET PO SCH (08:58)
[2022-06-12] MEDS: SOTALOL 80 MG TABLET PO SCH (08:58)
[2022-06-12] MEDS: oxyCODONE/ACETAMINOPHEN 5-325 MG TABLET PO PRN ×3 (09:04→21:03)
[2022-06-12] MEDS: ONDANSETRON 4 MG/2 ML VIAL IV PRN (12:35)
[2022-06-12] MEDS: RIVAROXABAN 10 MG TABLET PO SCH (16:38)
[2022-06-12] MEDS: MELATONIN 3 MG TABLET PO PRN (21:03)
[2022-06-13] MEDS: PANTOPRAZOLE 40 MG VIAL IV SCH ×2 (08:25→21:33)
[2022-06-13] MEDS: FUROSEMIDE 40 MG/4 ML VIAL IV SCH ×2 (08:25→15:07)
[2022-06-13] MEDS: TAMSULOSIN 0.4 MG CAPSULE PO SCH (08:26)
[2022-06-13] MEDS: CLOPIDOGREL 75 MG TABLET PO SCH (08:26)
[2022-06-13] MEDS: DOCUSATE SODIUM 100 MG CAPSULE PO SCH ×2 (08:26→21:33)
[2022-06-13] MEDS: ISOSORBIDE MONONITRATE 30 MG TABLET PO SCH (08:26)
[2022-06-13] MEDS: CLORAZEPATE 3.75 MG TABLET PO SCH ×3 (08:26→21:33)
[2022-06-13] MEDS: MAGNESIUM OXIDE 400 MG TABLET PO SCH ×2 (08:26→21:33)
[2022-06-13] MEDS: FERROUS SULFATE 325 MG TABLET PO SCH (08:26)
[2022-06-13] MEDS: SPIRONOLACTONE 25 MG TABLET PO SCH (08:26)
[2022-06-13] MEDS: BACLOFEN 10 MG TABLET PO SCH ×3 (08:26→21:33)
[2022-06-13] MEDS: SOTALOL 80 MG TABLET PO SCH (08:27)
[2022-06-13] MEDS: ASPIRIN CHEW 81 MG TABLET PO SCH (08:27)
[2022-06-13] MEDS: LEVOTHYROXINE 50 MCG TABLET PO SCH (08:27)
[2022-06-13] MEDS: oxyCODONE/ACETAMINOPHEN 5-325 MG TABLET PO PRN ×3 (08:32→21:34)
[2022-06-13] MEDS: ONDANSETRON 4 MG/2 ML VIAL IV PRN ×2 (15:07→21:33)
[2022-06-13] MEDS: RIVAROXABAN 10 MG TABLET PO SCH (17:20)
[2022-06-13] MEDS: DOBUTamine 500 MG/250 ML PREMIX IV SCH (17:40)
[2022-06-13] MEDS: MELATONIN 3 MG TABLET PO PRN (23:07)
[2022-06-14 04:46] LABS: Basophils # 0.1 10*3/uL (0.0-0.2); Eosinophils # 0.3 10*3/uL (0.0-0.87); Eosinophils % 5.2 % (0.00-10.9); Hematocrit 40.9 VOL% (42.0-52.0); Immature Granulocytes % 0.2 %; Immature Granulocytes Absolute 0.01 #; Lymphocytes # 1.5 10*3/uL (1.4-4.0); Lymphocytes % 25.1 % (21.2-54.2); Mean Corpuscular HGB Conc 31.8 GM/DL (32-36); Mean Corpuscular Volume 88.1 FL (87-102); Mean Platelet Volume 10.2 FL (9.6-12.0); Monocytes # 0.7 10*3/uL (0.11-0.8); Monocytes % 12.1 % (1.7-12.7); Neutrophils % 56.4 % (38.7-73.9); Platelet Count 159 T/CUMM (130-400); Red Blood Count 4.64 MC/CUMM (3.8-5.5); Red Cell Distribution Width 15.9 % (9.3-17.3)
[2022-06-14 05:06] LABS: Albumin 3.6 G/DL (3.4-5.0); Bilirubin,Total 2.2 MG/DL (0.20-1.00); Calcium 9.4 MG/DL (8.5-10.1); Osmolality,Calculated 275.8 MOS/KG (273-304); Potassium 3.9 MMOL/L (3.5-5.1); Total Protein 7.2 G/DL (6.4-8.2)
[2022-06-14] MEDS: oxyCODONE/ACETAMINOPHEN 5-325 MG TABLET PO PRN (09:01)
[2022-06-14] MEDS: MAGNESIUM OXIDE 400 MG TABLET PO SCH (09:02)
[2022-06-14] MEDS: FERROUS SULFATE 325 MG TABLET PO SCH (09:03)
[2022-06-14] MEDS: SOTALOL 80 MG TABLET PO SCH (09:03)
[2022-06-14] MEDS: ISOSORBIDE MONONITRATE 30 MG TABLET PO SCH (09:03)
[2022-06-14] MEDS: TAMSULOSIN 0.4 MG CAPSULE PO SCH (09:06)
[2022-06-14] MEDS: BACLOFEN 10 MG TABLET PO SCH (09:06)
[2022-06-14] MEDS: LEVOTHYROXINE 50 MCG TABLET PO SCH (09:07)
[2022-06-14] MEDS: DOCUSATE SODIUM 100 MG CAPSULE PO SCH (09:07)
[2022-06-14] MEDS: SPIRONOLACTONE 25 MG TABLET PO SCH (09:07)
[2022-06-14] MEDS: CLOPIDOGREL 75 MG TABLET PO SCH (09:08)
[2022-06-14] MEDS: ASPIRIN CHEW 81 MG TABLET PO SCH (09:08)
[2022-06-14] MEDS: CLORAZEPATE 3.75 MG TABLET PO SCH (09:10)
[2022-06-14] MEDS: PANTOPRAZOLE 40 MG VIAL IV SCH (10:40)
[2022-06-14] MEDS: FUROSEMIDE 40 MG/4 ML VIAL IV SCH (10:40)
[2022-06-14] MEDS: ONDANSETRON 4 MG/2 ML VIAL IV PRN (10:41)
[2022-06-14 13:11] VITALS: BP 125/85
== END 2022-06-14 12:35 | disposition home or self-care (01) | DRG 291 ==
LOC: N.EDINP 16:45 → N.ED 16:45 → SUATTDRO 20:00 → N.EDINP 20:45 → N.TELES 20:47
PROVIDERS: ADMIT Family Medicine; ATTEND Internal Medicine Interventional Cardiology